=== PATIENT | male | born 1955 | race Caucasian/White ===

== ENCOUNTER → 2016-10-12 | Outpatient (CLI) | payer OTHER ==
[~2016-10-12] MED LIST: ALBUTEROL0.09 MG/A2 IH; ALBUTEROL0.09 MG/A2 INH; ALDACTONE25 M1 PO; AMOXICILLIN500 MG PO; ASPIRIN ADULT L81 M1 PO; CLARITIN-D 12 H1 TAB PO; COREG3.125 MG PO; DAYPRO600 M1 PO; DONNATAL1 TAB PO; DOXYCYCLINE MO100 MG PO; LEVAQUIN750 MG PO; LEVOFLOXACIN500 MG PO; LISINOPRIL2.5 MG PO; PREDNICOT10 MG PO; PREDNISONE20 MG PO; PROTONIX TR40 MG PO; ROBITUSSIN AC 110 ML PO; VICODIN 5/500 505 MG PO
== END | disposition home or self-care (01) ==
LOC: CARD 10:28
DX: I34.0 Nonrheumatic mitral (valve) insufficiency (principal); I42.9 Cardiomyopathy, unspecified

== ENCOUNTER → 2017-06-22 | Outpatient (CLI) | payer OTHER | END | disposition home or self-care (01) | LOC: RAD 13:12 | DX: M79.605 Pain in left leg (principal) ==

== ENCOUNTER 2017-07-20 12:10 | Inpatient (IN) | payer OTHER ==
[~2017-07-20] VITALS: Ht 175.2 cm; Wt 81.2 kg
--- NOTE | ~2017-07-20 | PR ---
[place], [place] PROGRESS NOTE NAME: [id number] UNIT #: [id number] ROOM: 505 DOCTOR: GALINA OLIVERA MD,DIEGO BIRTHDATE: [birth year] DOS: 07/24/2017 SUBJECTIVE: The patient reported partial reduction of the chest congestion and has expectorate sputum, which appeared to be quite purulent, at the bedside intermittently. The patient denies symptoms of chest pain or hemoptysis. Wheezing and shortness of breath was resolving. OBJECTIVE: VITAL SIGNS: Normal temperature, respiratory rate 16, heart rate 72, blood pressure 101/71. Pulse oxygen saturation on room air was 95% saturation. HEENT: Moderate obesity. NECK: Supple. CARDIOVASCULAR: S1, S2 audible. LUNGS: Moderate reduction in breath sounds, scattered wheezing of the lungs are noted today. ABDOMEN: Soft, nontender. EXTREMITIES: Chronic obesity. IMPRESSION: The patient has been currently noted with acute exacerbation of chronic obstructive pulmonary disease with acute bronchitis with bacterial infection, resolving with current medical management. PLAN OF MANAGEMENT: Reduce the Solu-Medrol to 40 mg b.i.d. dosing today. Sputum culture has been ordered, not done so far. Continuation of doxycycline as previously ordered. Possible discharge home tomorrow morning depends on further resolution of the acute symptoms will be considered. DIEGO MOJICA MD CM:PNTRANS [phone] DIEGO OLIVERA MD 07/25/17 0312 interface
--- NOTE | ~2017-07-20 | PR ---
[place], [place] PROGRESS NOTE NAME: [facility]PH [facility] [id number] UNIT #: [id number] ROOM: 505 DOCTOR: JHONNY LAUGHLIN MD BIRTHDATE: [birth year] DOS: SUBJECTIVE: The continues to complain of cough, states that he is unable to cough up any mucus. OBJECTIVE: GENERAL: He is no distress. No audible wheezing. VITAL SIGNS: Blood pressure is 95/68, pulse of 69, respirations 18, temperature 97.5. LUNGS: Diminished breath sounds. No wheezes heard this morning. HEART: Regular. ABDOMEN: Obese. EXTREMITIES: Without any edema. ASSESSMENT AND PLAN: 1. The patient with acute exacerbation of chronic obstructive pulmonary disease, on IV steroids. 2. Acute tracheobronchitis with a negative CT of the chest. For the patient's continued complaints I will ask Dr. Iraheta for an opinion. 3. Cardiomyopathy, ejection fraction 10%, status post stress test this morning. Dr. Nieves has not read the nuclear part of the chest yet. If that is negative, the patient should be able to go home. JHONNY LAUGHLIN MD CM:PNTRANS 7 [phone] JHONNY LAUGHLIN MD 07/23/17957 interface
--- NOTE | ~2017-07-20 | PR ---
[place], [place] PROGRESS NOTE [id number] UNIT #: [id number] ROOM: 505 DOCTOR: GALINA OLIVERA MD,DIEGO BIRTHDATE: [birth year] DOS: 07/25/2017 SUBJECTIVE: He has been showing progressive resolution and improvement of respiratory symptoms gradually. Denies symptoms of chest pain or hemoptysis. Denies symptoms of abdominal pain. Coughing frequency and intensity has improved significantly. Sputum expectoration noted minimal at the present time. OBJECTIVE: VITAL SIGNS: For the patient, which was recorded showed the temperature noted as normal. The respiratory rate of the patient recorded as 18, heart rate 85, blood pressure 113/65. The pulse oxygen saturation is recorded 96% saturation. HEENT: No acute change. NECK: Supple. CARDIOVASCULAR: S1, S2 audible. LUNGS: Without any wheezing or crackles at the present time. ABDOMEN: Soft. Moderate obesity, bowel sounds present. EXTREMITIES: Without any edema. IMPRESSION: Progressive resolution of the respiratory symptoms. The patient has been currently admitted with acute exacerbation of chronic obstructive pulmonary disease and acute bronchitis. PLAN OF TREATMENT: The patient may be considered for home discharge, on oral antibiotics and the tapering prednisone and short acting bronchodilators. DIEGO MOJICA MD CM:PNTRANS [phone] DIEGO OLIVERA MD 07/26/17 0143 interface
--- NOTE | ~2017-07-20 | ST ---
[place], [place] EXERCISE STRESS TEST REPORT NAME: [facility] [id number] UNIT #: [id number] ROOM: 505 DOCTOR: COREEN CASTRO MD BIRTHDATE: [birth year] DOS: 07/23/2017 Lexiscan portion of the Lexiscan Cardiolite Baseline cardiogram, sinus rhythm with left ventricular hypertrophy, with interventricular conduction delay, with a 0.4 mg Lexiscan duration of 10 seconds. With Lexiscan, the patient did have some isolated PVCs. Significant T-wave inversions are present in the inferior leads and also the lateral leads, which were there in the beginning, got a little bit more deep. No chest discomfort or complaints of dizziness. FINAL IMPRESSION: Indeterminate test secondary to the underlying EKG abnormalities. The patient did have significant dizziness. No chest discomfort. Blood pressure is normal. Nuclear images will be reported separately. COREEN CASTRO MD CM:STRESS:EXERCISE STRESS TEST REPORT [id number] COREEN CASTRO MD
--- NOTE | ~2017-07-20 | DS ---
[place], [place] DISCHARGE SUMMARY NAME: EDER JOSEPH UNIT #: [id number] ROOM: 505 DOCTOR: BEAU REIDBONI Lucero BIRTHDATE: [birth year] DOS: 07/25/2017 DISCHARGE DIAGNOSES: 1. Chest pains with negative cardiac stress test discussed with Dr. Martinez today. The nuclear scan read by Dr. Martinez according to him was negative. 2. Acute exacerbation of chronic obstructive pulmonary disease, improved with treatment. 3. Severe cardiomyopathy with 10% left ventricular ejection fraction, chronic systolic type congestive heart failure, compensated. 4. Coronary artery disease of the false pass vessels without chest pain. 5. Chronic obstructive pulmonary disease. 6. History of nicotine and alcohol dependence. HOSPITAL COURSE: The patient was admitted by Dr. Graham when he presented with chest pain, increasing shortness of breath and cough. The patient was taken for a cardiac stress test and Dr. Martinez says his nuclear scan was read as normal and he can be discharged to home today. Acute exacerbation of COPD, treated with antibiotics and corticosteroids. The patient has already been treated for 5 days with these medicines, his breathing has improved, so the treatment will be stopped and he is being discharged to home. Chronic systolic type congestive heart failure, compensated, 10% left ventricular ejection fraction. History of coronary artery disease of false pass vessels, rule out chest pains. History of nicotine and alcohol dependence. IMPRESSION: Cardiac stress test. Nuclear scans were negative according to Dr. Martinez when we called him today. LABORATORY DATA: Cardiac enzymes x 3, troponin I levels were negative. Echocardiogram with 10% left ventricular ejection fraction with dilated left ventricle. DISCHARGE MANAGEMENT: Colace 100 mg a day, potassium chloride 20 mEq daily, lisinopril 2.5 mg a day, folic acid 1 mg daily, Lipitor 20 mg a day, aspirin 81 mg a day, Protonix 20 mg a day, furosemide 40 mg b.i.d., Coreg 3.125 mg b.i.d., DuoNeb every 4 hours as needed for shortness of breath. Follow up with Dr. Graham on Wednesday. Vicodin p.r.n., temazepam p.r.n. [place], [place] DISCHARGE SUMMARY NAME: EDER JOSEPH UNIT #: [id number] ROOM: 505 DOCTOR: BONI YANEZ MD BIRTHDATE: [birth year] BONI YANEZ MD CM:CARLOS [phone] BONI YANEZ MD 07/25/17 215 interface
--- NOTE | ~2017-07-20 | CON ---
[place], [place] REPORT OF CONSULTATION NAME: EDER JOSEPH UNIT #: [id number] ROOM: 505 DOCTOR: ELENO LUU MD BIRTHDATE: [birth year] DOS: 07/22/2017 HISTORY OF PRESENT ILLNESS: This is a 62-year-old -[place] man with a history of coronary artery disease. He had coronary artery evaluated in 2013 in [place] and was found to have a cardiomyopathy. One year ago, he had 2-vessel CABG and aortic valve replacement in [facility] and Dr. Oliva performed the study. He had severely reduced LV systolic function and has chronic systolic heart failure. He also has COPD in the past, has had alcohol problem, but he no longer uses nicotine. He has never had a stroke, bleeding ulcers or kidney problems. He was admitted to the hospital because of cough of several years duration. His cough is quite intense and the chest hurts when he coughs. He has been coughing a very little sputum, no blood in it. Because of the cough, he is unable to catch his breath at times. No swelling of the lower extremities. He has not had any PND, orthopnea or any palpitations or loss of consciousness. HOME MEDICATIONS: Atorvastatin, aspirin, carvedilol, Colace, folic acid, Lasix, lisinopril in small doses, Protonix, potassium supplement and temazepam. PHYSICAL EXAMINATION: GENERAL: The patient is very pleasant, alert. He is not anemic. There is no jaundice. There is no finger clubbing or thyromegaly. VITAL SIGNS: Pulse is regular at 60 beats per minute, blood pressure 94/52. NECK: JVP is +6 cm with a positive AJR. No bruit in the neck. Parasternal heave is present. CARDIAC: Auscultation reveals no murmurs or rubs. He has S3. EXTREMITIES: There is no edema in the lower extremities and good pedal pulses. : Lungs are clear with mildly reduced breath sounds. LABORATORY DATA: Troponin I levels are less than 0.015. Hemoglobin 14.9 g/dL. BUN 16, creatinine 1.03 and potassium 3.3, sodium 133. IMPRESSION: 1. This patient has chest pain that is probably coming from the chest wall because of acute chest infection that has caused a lot of cough. 2. There is only mild evidence of cardiac decompensation, i.e., elevated jugular venous pressure. 3. Severe ischemic cardiomyopathy. 4. Mild hyponatremia and hypokalemia. I discussed this with Dr. Martinez and he wishes to perform a Lexiscan Cardiolite study on this patient tomorrow and will be scheduled. I thank you on behalf of Dr. Martinez for this consult. [place], [place] REPORT OF CONSULTATION NAME: JOSEPHEDER UNIT #: [id number] ROOM: [facility] DOCTOR: ELENO LUU MD BIRTHDATE: [birth year] ELENO LUU MD CM:CONSTR:REPORT OF CONSULTATION 58 07/23/17 0028 interface
--- NOTE | ~2017-07-20 | PR ---
[place], [place] PROGRESS NOTE [id number] UNIT #: [id number] ROOM: 505 DOCTOR: JHONNY LAUGHLIN MD BIRTHDATE: [birth year] DOS: SUBJECTIVE: The patient is doing fine without any complaints this morning. He still has that discomfort in the left axillary area. OBJECTIVE: VITAL SIGNS: Blood pressure is 102/57, pulse of 68, respirations 16, temperature 98.7. LUNGS: Clear. HEART: Regular. ABDOMEN: Soft. EXTREMITIES: Without any edema. LABORATORY DATA: Three sets of troponin were negative. ASSESSMENT AND PLAN: 1. Acute exacerbation of chronic obstructive pulmonary disease with acute respiratory distress, improving on the steroids and antibiotics. 2. Acute tracheobronchitis on antibiotics. CT did not show a pneumonia. 3. Left-sided chest pain appears to be musculoskeletal. The patient was ordered Toradol, which I will continue. 4. Hypokalemia. Supplementation was given, awaiting cardiology consultation this morning. JHONNY LAUGHLIN MD CM:PNTRANS [phone] JHONNY LAUGHLIN MD 07/22/171946 interface
--- NOTE | ~2017-07-20 | WRIGHTHP ---
[place], [place] PATIENT HISTORY AND PHYSICAL EXAM NAME: EDER JOSEPH [facility] #: [id number] UNIT #: [id number] ROOM: [facility] DOCTOR: JHONNY LAUGHLIN MD BIRTHDATE: [birth year] DOS: HISTORY OF PRESENT ILLNESS: The patient comes in with complaints of cough and shortness of breath for the last several days. Cough is productive of scant to minimal amount of sputum. The patient states that he is unable to catch his breath at times. His pain is in his left side of the chest without any radiation. Denies having any nausea or any emesis. ____ the pain, he points to his infra-axillary area on the left side. PAST MEDICAL HISTORY: Significant for; 1. Coronary artery disease and aortic valve stenosis, status post CABG and AVR about a year in July of 2016. 2. Cardiomyopathy. 3. Chronic obstructive pulmonary disease. 4. History of nicotine abuse. 5. History of alcohol abuse. MEDICATIONS: He is currently on are atorvastatin 20 daily, aspirin 81 daily, Coreg 3.125 twice a day, Colace 100 daily, folic acid 1 mg daily, Lasix 40 b.i.d., [place] 5 q.6 h. p.r.n., lisinopril 2.5 daily, Protonix 40 daily, potassium 20 daily and temazepam 30 at bedtime. SOCIAL HISTORY: History of heavy cigarette smoking, but has not smoked for about 5 years. PHYSICAL EXAMINATION: GENERAL: He is awake, alert and oriented. VITAL SIGNS: Blood pressure is 92/58, pulse of 60, respirations 18 and temperature 98.0. LUNGS: Clear. HEART: Regular. LUNGS: Diminished breath sounds, scattered wheezes. HEART: Regular. ABDOMEN: Obese, soft. Tenderness noticed in the left chest wall, infra-axillary area with rebound. EXTREMITIES: Without any edema. ASSESSMENT AND PLAN: 1. Acute exacerbation of chronic obstructive pulmonary disease with acute respiratory distress, on intravenous antibiotics and steroids. 2. Acute tracheobronchitis. Chest CT has been ordered. IV antibiotics have been ordered. 3. Left-sided chest pain, which appears to be atypical and musculoskeletal, but we will ask Dr. Martinez for an opinion. Local moist heat application and Toradol will be ordered. [place], [place] PATIENT HISTORY AND PHYSICAL EXAM NAME: EDER JOSEPH UNIT #: [id number] ROOM: [facility] DOCTOR: JHONNY LAUGHLIN MD BIRTHDATE: [birth year] JHONNY LAUGHLIN MD CM:HISPHYS:PATIENT HISTORY AND PHYSICAL EXAMINATION JHONNY LAUGHLIN MD 07/21/17 0949 interface
--- NOTE | ~2017-07-20 | CON ---
[place], [place] REPORT OF CONSULTATION [facility] [id number] UNIT #: [id number] ROOM: 505 DOCTOR: GALINA OLIVERA MD,DIEGO BIRTHDATE: [birth year] DOS: 07/23/2017 REASON FOR CONSULTATION: Persistent cough, chest congestion. The consultation request by Dr. Rhonda Graham. HISTORY OF PRESENT ILLNESS: This is a 62-year-old white male who was seen and examined on 07/23/2016, has been admitted to the hospital under care of Dr. Rhonda Graham on 07/21/2016. The patient reported having progressive symptoms of coughing, which has been present for past several days. He has been noted with scant amount of sputum with that. She stated the chest congestion remains as well as wheezing was also noted at this time with excessive cough. Shortness of breath occurs with exertion. Denies symptoms of chest pain or hemoptysis or edema, pain of the lower extremities. The pain has been noted previously on left side, which has been completely resolved. REVIEW OF SYSTEMS: CONSTITUTIONAL: Fatigue and tiredness noted. There were no symptoms of fever or chills. EYES: Denies any burning, redness, tenderness. EARS, NOSE AND THROAT: Denies sore throat, hoarseness, otalgia, postnasal drainage. CARDIOVASCULAR: Denies anginal pain, edema or pain of the lower extremities. GASTROINTESTINAL: Denies dysphagia, nausea, vomiting, diarrhea, abdominal pain, hematemesis, melena, or hematochezia. SKIN: Denies lesions or rashes. MUSCULOSKELETAL: No acute deformities. SKIN: No lesions or rashes. Remaining systems were reviewed, there were noted all negative. PAST MEDICAL HISTORY: Was reported with: 1. History of severe cardiomyopathy, left ventricular ejection fraction 10%. 2. Coronary artery disease with surgical intervention. 3. History of COPD. 4. History of nicotine abuse. 5. History of alcohol dependence. SOCIAL HISTORY: The patient is , has 2 children. He has worked in the [employer] for 38 years. Smoking was noted as a teenager, pack of cigarettes per day until 2012. The patient has been noted with history of use of alcohol previously as well. PAST SURGICAL HISTORY: Noted with aortic valve replacement for the patient as well as coronary artery bypass grafting was done in [facility] in 2017. FAMILY HISTORY: The patient noted and noncontributory. HOME MEDICATIONS: Noted use of Lipitor, aspirin, Coreg, Colace, folic acid, [place], [place] REPORT OF CONSULTATION NAME: EDER JOSEPH UNIT #: [id number] ROOM: [facility] DOCTOR: GALINA OLIVERA MD,DIEGO BIRTHDATE: [birth year] Lasix, lisinopril, Protonix, potassium, and Restoril. DRUG ALLERGIES: No known drug allergies. PHYSICAL EXAMINATION: GENERAL: This is a 62-year-old male with the current noted sitting on side of bed without distress noted with a nonproductive cough. The patient intermittently during the assessment with some audible wheeze. The patient noted 5 feet 9 inches, weight of 78 kg, BMI 25.5. VITAL SIGNS: The patient shows a normal temperature, respiratory rate 18-20, heart rate of 81-77, blood pressure 124/40 to 112/61. Pulse oxygen saturation on room air was 98% saturation. HEENT: Moderate obesity. Head was atraumatic. Eyes nonicterus. NECK: Supple. CARDIOVASCULAR: S1, S2 audible. LUNGS: Noted with decreased breath sounds, scattered expiratory wheezing. There were no crackles. ABDOMEN: Soft. Moderate obesity. Bowel sounds present. EXTREMITIES: No edema, clubbing, cyanosis. MUSCULOSKELETAL SYMPTOMS: Without any acute deformities. SKIN: No visible lesions. CENTRAL NERVOUS SYSTEM: Cranial nerves are intact. No focal deficit. LABORATORY DATA: CBC of 07/20/2017 were noted essentially as normal. CBC except the differential is 44, reported a 4% atypical lymphocytes. The BMP on admission, glucose 174, BUN and creatinine normal, sodium 133, potassium 3.3, CO2 34. Troponin, which were done on the and 3rd were all noted normal. The echocardiogram that was completed on 07/21/[address] Martinez described as findings of only 10% left ventricular ejection fraction. The right ventricle was noted mildly dilated as well. The CT scan of the chest on 07/20/2017 was reviewed, does not show any acute pulmonary nodule interstitial infiltration. The mediastinal structure could not be assessed appropriately because of lack of the IV contrast use. IMPRESSION: The patient will be currently admitted to the hospital noted with acute exacerbation of chronic obstructive pulmonary disease with acute bronchitis ____ area to be considered because of ongoing symptom for the past several weeks. The patient has not been taking any medications for that at the present time. PLAN OF TREATMENT: DuoNeb will be given every 4 hours. The patient will be started on IV Solu-Medrol as well. Antibiotic will be given as well. Sputum for Gram stain and culture. Mucinex was ordered high dose. ____ rather for further assessment. [place], [place] REPORT OF CONSULTATION NAME: EDER JOSEPH UNIT #: [id number] ROOM: [facility] DOCTOR: DIEGO LYNN MD BIRTHDATE: [birth year] DIEGO MOJICA MD CM:CONSTR:REPORT OF CONSULTATION 1653 07/24/17 0418 interface
--- NOTE | ~2017-07-20 | PR ---
[place], [place] PROGRESS NOTE [facility]: [id number] UNIT #: [id number] ROOM: 505 DOCTOR: BONI YANEZ MD BIRTHDATE: [birth year] DOS: 07/24/2017 SUBJECTIVE: The patient says he is still congested in his chest, but his breathing continues to improve and that he has been seen by Dr. Iraheta who is planning to clear him for discharge tomorrow. OBJECTIVE: GENERAL APPEARANCE: The patient is alert and oriented x 3, in no visible distress. VITAL SIGNS: Blood pressure 117/60, heart rate 102 beats per minute, breathing 20 times a minute, temperature 98 degrees Fahrenheit. HEENT AND NECK: Exam within normal limits. CARDIOVASCULAR SYSTEM: Heart rate is regular in rate and rhythm. S1 and S2 normally audible. LUNGS: Clear to auscultation. ABDOMEN: Soft, nontender. No obvious organomegaly. Bowel sounds are present. EXTREMITIES: Without significant cyanosis or edema. IMPRESSION: 1. The patient with acute exacerbation of chronic obstructive pulmonary disease, continues to improve with treatment with corticosteroids, ceftriaxone and bronchodilators. 2. Chest pains. The patient ruled out for myocardial infarction with serial cardiac enzymes and the cardiac stress test was performed, which has not been fully reported. 3. Severe cardiomyopathy with 10% left ventricular ejection fraction, chronic systolic type congestive heart failure, compensated. BONI YANEZ MD CM:PNTRANS [id number] BONI YANEZ MD 07/25/17 0409 interface
[2017-07-20 12:30] VITALS: BP 109/65
[2017-07-20 12:45] VITALS: BP 109/65
[2017-07-20] MEDS ORDERED: NATURE'S BLEND F1 MG PO (14:54)
[2017-07-20] MEDS ORDERED: POTASSIUM CHLO10 ME4 PO (14:54)
[2017-07-20] MEDS ORDERED: LIPITOR20 MG PO (14:54)
[2017-07-20] MEDS ORDERED: RESTORIL30 M1 PO (14:55)
[2017-07-20] MEDS ORDERED: TAMIFLU 75MG CA75 MG PO (14:55)
[2017-07-20 16:00] VITALS: BP 108/51
[2017-07-20] MEDS ORDERED: NORCO 5-325 TA1 EACH PO (16:02)
[2017-07-20] MEDS ORDERED: FUROSEMIDE40 MG PO (16:02)
[2017-07-20] MEDS ORDERED: DOC-Q-LACE100 MG PO (16:03)
[2017-07-20 16:18] LABS: HEMATOCRIT 43.8 % (42.0-52.0); HEMOGLOBIN 14.9 g/dl (14.0-18.0); MEAN CELL VOLUME 86.4 fl (80.0-94.0); MEAN CORPUSCULAR HGB 29.4 pg (27.0-31.0); MEAN PLATELET VOLUME 9.3 fl (9.6-12.3); PLATELET COUNT AUTOMATED 206 10*3/uL (130-400); RED BLOOD COUNT 5.07 10*6/uL (4.50-5.90); RED CELL DISTRI WIDTH 13.1 % (0-14.5); WHITE BLOOD COUNT 5.7 10*3/uL (4.8-10.8)
[2017-07-20 16:55] LABS: ATYPICAL LYMPHS 4 % (0-0); TOTAL CELLS COUNTED 100 #CELLS
[2017-07-20 16:56] LABS: PLATELET SUFFICIENCY NORMAL (NORMAL)
[2017-07-20 20:00] VITALS: BP 119/68
[2017-07-21] VITALS: BP 101/66
[2017-07-21 04:00] VITALS: BP 92/58
[2017-07-21 08:00] VITALS: BP 116/56
[2017-07-21 09:53] LABS: BUN 16 mg/dl (7-24); CHLORIDE 92 mmol/L (98-107); CREATININE 1.03 mg/dL (0.70-1.30); POTASSIUM 3.3 mmol/L (3.5-5.1); SODIUM 133 mmol/L (136-145)
[2017-07-21 12:00] VITALS: BP 97/55
[2017-07-21 16:00] VITALS: BP 103/59
[2017-07-21 20:00] VITALS: BP 90/50
[2017-07-22] VITALS (7 sets, daily range): BP systolic 82–130; BP diastolic 50–80
[2017-07-23] VITALS: BP 95/68
[2017-07-23 08:00] VITALS: BP 124/40
[2017-07-23 12:00] VITALS: BP 112/61
[2017-07-23 16:00] VITALS: BP 119/70
[2017-07-23 20:00] VITALS: BP 111/62
[2017-07-24] VITALS: BP 101/71
[2017-07-24 08:00] VITALS: BP 114/48
[2017-07-24 12:00] VITALS: BP 112/54
[2017-07-24 16:00] VITALS: BP 117/59
[2017-07-24 20:00] VITALS: BP 139/85
[2017-07-25] VITALS: BP 103/55
[2017-07-25 08:00] VITALS: BP 109/53
[2017-07-25 12:00] VITALS: BP 99/51
[2017-07-25 16:00] VITALS: BP 113/65
== END 2017-07-25 16:44 | disposition home or self-care (01) | DRG 191 ==
LOC: 5E 12:10
PROVIDERS: Internal Medicine
DX: J44.0 Chronic obstructive pulmonary disease with (acute) lower respiratory infection (principal); E87.1 Hypo-osmolality and hyponatremia; I42.9 Cardiomyopathy, unspecified; I50.22 Chronic systolic (congestive) heart failure; I25.5 Ischemic cardiomyopathy; J20.9 Acute bronchitis, unspecified; R06.03 Acute respiratory distress; E87.6 Hypokalemia; R07.89 Other chest pain; J44.1 Chronic obstructive pulmonary disease with (acute) exacerbation; I25.10 Atherosclerotic heart disease of native coronary artery without angina pectoris; E66.9 Obesity, unspecified; I35.0 Nonrheumatic aortic (valve) stenosis; Z87.891 Personal history of nicotine dependence; Z95.1 Presence of aortocoronary bypass graft; Z79.82 Long term (current) use of aspirin; Z79.899 Other long term (current) drug therapy; Z68.25 Body mass index [BMI] 25.0-25.9, adult

== ENCOUNTER → 2019-04-27 | Outpatient (CLI) | payer OTHER ==
[~2019-04-27] MED LIST changes: +DOC-Q-LACE100 MG PO; +FUROSEMIDE40 MG PO; +LIPITOR20 MG PO; +NATURE'S BLEND F1 MG PO; +NORCO 5-325 TA1 EACH PO; +POTASSIUM CHLO10 ME4 PO; +RESTORIL30 M1 PO; +TAMIFLU 75MG CA75 MG PO
== END | disposition home or self-care (01) ==
LOC: CARD 13:48
DX: I25.10 Atherosclerotic heart disease of native coronary artery without angina pectoris (principal); R06.02 Shortness of breath

== ENCOUNTER → 2019-07-03 | Outpatient (CLI) | payer OTHER | END | disposition home or self-care (01) | LOC: RAD 13:29 | DX: J98.4 Other disorders of lung (principal); I51.7 Cardiomegaly ==

== ENCOUNTER → 2019-07-17 | Outpatient (CLI) | payer OTHER | END | disposition home or self-care (01) | LOC: MRI 08:55 | DX: M47.812 Spondylosis without myelopathy or radiculopathy, cervical region (principal); M47.814 Spondylosis without myelopathy or radiculopathy, thoracic region; M47.816 Spondylosis without myelopathy or radiculopathy, lumbar region ==

== ENCOUNTER → 2019-08-23 | Outpatient (CLI) | payer OTHER ==
[~2019-08-23] MED LIST changes: +CEFAZOLIN1 G1 IV; +CLONAZEPAM0.5 M2 PO; +LOPRESSOR25 MG PO; +METOPROLOL SUCC25 M2 PO; +MIRTAZAPINE15 M2 PO
== END | disposition home or self-care (01) ==
LOC: RAD 13:25
DX: I51.7 Cardiomegaly (principal)

== ENCOUNTER 2019-08-25 22:38 | Inpatient (IN) | payer OTHER ==
[~2019-08-25] VITALS: Ht 172.7 cm; Wt 74.0 kg
[~2019-08-25 22:38] MED LIST changes: -CEFAZOLIN1 G1 IV; -CLONAZEPAM0.5 M2 PO; -LOPRESSOR25 MG PO; -METOPROLOL SUCC25 M2 PO; -MIRTAZAPINE15 M2 PO
[2019-08-25 22:41] VITALS: BP 123/71
[2019-08-25 23:45] LABS: BASO # 0.1 10*3/uL (0.0-0.1); BASO % 0.4 % (0.0-1.0); EOS # 0.2 10*3/uL (0.0-0.4); EOS % 1.6 % (1.0-4.0); HEMOGLOBIN 13.2 g/dl (14.0-18.0); LYMPH # 1.5 10*3/uL (1.3-4.4); LYMPH % 13.1 % (27.0-41.0); MEAN CELL VOLUME 90.9 fl (80.0-94.0); MEAN PLATELET VOLUME 9.4 fl (9.6-12.3); MONO % 9.1 % (3.0-9.0); NEUT # 8.6 10*3/uL (2.3-7.9); NEUT % 75.1 % (47.0-73.0); PLATELET COUNT AUTOMATED 463 10*3/uL (130-400); RED CELL DISTRI WIDTH 14.5 % (0-14.5); WHITE BLOOD COUNT 11.4 10*3/uL (4.8-10.8)
[2019-08-25 23:55] LABS: ACT PARTIAL THROMBO TIME 35.1 SECONDS (20.0-32.1); INTERNATIONAL NORM RATIO 1.4 (2.0-3.5)
[2019-08-26] VITALS (13 sets, daily range): BP systolic 81–116; BP diastolic 50–80
[2019-08-26 00:03] LABS: ALBUMIN 2.4 gm/dl (3.1-4.5); ALKALINE PHOSPHATASE 210 U/L (45-117); BUN 18 mg/dl (7-24); CHLORIDE 101 mmol/L (98-107); CREATININE 0.89 mg/dL (0.70-1.30); POTASSIUM 4.5 mmol/L (3.5-5.1); SGOT/AST 112 IU/L (3-35); SGPT/ALT 114 U/L (12-78); SODIUM 134 mmol/L (136-145); TOTAL PROTEIN 6.5 gm/dL (6.4-8.2)
[2019-08-26 00:05] LABS: TROPONIN I < 0.015 ng/ml (<0.045)
--- NOTE | 2019-08-26 01:14 | NUR ---
NO C/O AT THIS TIME.--MIGUEL ANGEL PATEL RN
--- NOTE | 2019-08-26 01:51 | NUR ---
PT RETURNING FROM CT AT THIS TIME.---MIGUEL ANGEL PATEL RN
--- NOTE | 2019-08-26 05:40 | NUR ---
SLIGHT DELAY IN GETTING PT UPSTAIRS DUE TO HIS REQUEST FOR BSC FOR DIARRHEA.--MIGUEL ANGEL PATEL RN
--- NOTE | 2019-08-26 05:40 | NUR ---
WHEN PT GOT UP FOR DIARRHEA,HE BECAME SWEATY AND FELT NAUSEATED.THEN S/S WENT AWAY AFTER HE MOVED HIS BOWELS.---MIGUEL ANGEL PATEL RN
--- NOTE | 2019-08-26 06:15 | NUR ---
A 64, admitted to , under the services of Dr. BEAU REID,BONI Lucero with a diagnosis of PNEUMONIA. Chief complaint is FEVER. Patient arrived via stretcher from ER. Monitor applied. Initial assessment completed. Vital signs taken and recorded. DR. BEAU REID,BONI Lucero notified of admission to the unit. Orders received. See assessment for past medical history, medications and allergies. Patient and/or family oriented to unit. [facility] FLO[facility] visitation policy reviewed. Clothing/patient valuable form completed. ABDIRASHID DIAS
--- NOTE | 2019-08-26 06:30 | NUR ---
PATIENT RECTAL TEMP 96.8. PLACED ON HEATING BLANKET. NOTIFIED DR. YANEZ PATIENT ON FLOOR. SEE NEW ORDERS.
--- NOTE | 2019-08-26 07:39 | NUR ---
CONSULT CALLED TO . AWAITING CALL BACK.
--- NOTE | 2019-08-26 07:46 | NUR ---
CALLED CONSULT TO . LEFT MESSAGE. AWAITING CALL BACK.
--- NOTE | 2019-08-26 07:48 | NUR ---
CALLED JANIA. ORDERS FOR ROCEPHIN AND ZITHROMAX REC'D. SAID SHE WOULD BE IN TO SEE PT LATER TODAY.
--- NOTE | 2019-08-26 08:04 | NUR ---
CALLED BACK. CONTINUE CURRENT ORDERS. WILL BE IN TO SEE PT TODAY.
[2019-08-26 11:21] LABS: BILIRUBIN NEGATIVE (NEGATIVE); BLOOD NEGATIVE (NEGATIVE); CLARITY SL CLOUDY (CLEAR); COLOR YELLOW (YELLOW); GLUCOSE NEGATIVE (NEGATIVE); KETONE NEGATIVE (NEGATIVE); LEUKO ESTERASE NEGATIVE (NEGATIVE); NITRITE NEGATIVE (NEGATIVE); SPECIFIC GRAVITY 1.015 (1.005-1.030); UROBILINOGEN 0.2 E.U./dl (0.2-1.0)
[2019-08-26 11:27] LABS: BACTERIA 1+; MUCOUS 1+; RBC 0-2 rbc/hpf (0-2)
--- NOTE | 2019-08-26 12:36 | NUR ---
AWARE OF LOW BP. SAID TO CONTINUE CURRENT ORDERS AND WILL BE IN TO SEE PT SHORTLY.
--- NOTE | 2019-08-26 14:22 | NUR ---
SLEEPING, NO SXS OF DISTRESS NOTED. RESPERS EASY, REGULAR. CALL LIGHT IN REACH. TEMP 98.4 ON HYPOTHERMIA BLANKET WITH PROBE IN PLACE. WILL CONTINUE TO MONITOR.
--- NOTE | 2019-08-26 15:16 | NUR ---
8BEAT RUN OF V-TACH NOTED. PT ASYMPTOMATIC SITTING IN BED. VSS. NOTIFIED. NEW ORDER FOR LABS REC'D. ORDERED TO CALL WITH ABNORMAL RESULTS.
[2019-08-26 15:51] LABS: BASO % 0.3 % (0.0-1.0); EOS # 0.2 10*3/uL (0.0-0.4); EOS % 2.3 % (1.0-4.0); HEMATOCRIT 37.2 % (42.0-52.0); HEMOGLOBIN 12.2 g/dl (14.0-18.0); LYMPH # 1.8 10*3/uL (1.3-4.4); LYMPH % 20.2 % (27.0-41.0); MEAN CORPUSCULAR HGB 29.8 pg (27.0-31.0); MEAN CORPUSCULAR HGB CONC 32.8 g/dl (33.0-37.0); MEAN PLATELET VOLUME 9.3 fl (9.6-12.3); MONO # 0.7 10*3/uL (0.1-1.0); MONO % 8.1 % (3.0-9.0); NEUT # 6.2 10*3/uL (2.3-7.9); NEUT % 68.7 % (47.0-73.0); PLATELET COUNT AUTOMATED 402 10*3/uL (130-400); RED BLOOD COUNT 4.09 10*6/uL (4.50-5.90); RED CELL DISTRI WIDTH 14.4 % (0-14.5)
[2019-08-26 16:04] LABS: BUN 14 mg/dl (7-24); CHLORIDE 105 mmol/L (98-107); CREATININE 0.75 mg/dL (0.70-1.30); POTASSIUM 3.7 mmol/L (3.5-5.1); SODIUM 135 mmol/L (136-145)
--- NOTE | 2019-08-26 16:38 | NUR ---
AWARE OF BP 82/64. PT ASYMPTOMATIC, IN TO SEE PT AT THIS TIME. NO NEW ORDERS REC'D.
--- NOTE | 2019-08-26 17:12 | NUR ---
NOTIFIED HOME MED REC WAS COMPLETED.
--- NOTE | 2019-08-26 17:47 | NUR ---
MAINTAINING TEMP AT 98.9 WITHOUT HYPOTHERMIA BLANKET VIA CONTINUOUS RECTAL PROBE. AWARE. OK TO REMOVE PROBE. WILL MONITOR.
--- NOTE | 2019-08-26 19:30 | NUR ---
TOOK OVER CARE OF PT. PT SITTING UP IN CHAIR BESIDE BED. AT BEDSIDE. PT ALERT ORIENTED AND PLEASANT MOOD. VITALS OBTAINED AND WNL. TEMPERATURE 97.2. RESPIRATIONS EASY AND UNLABORED ON ROOM AIR. WILL CONTINUE TO MONITOR. CALL LIGHT IN REACH.
--- NOTE | 2019-08-26 19:57 | NUR ---
DR YANEZ NOTIFIED THAT PT IS REQUESTING TYLENOL AND "SOMETHING TO HELP HIM SLEEP". NEW ORDERS RECEIVED FOR AMBIEN 10 MG PO QHS AND TYLNEOL 1000 MG Q8H NEEDED. WILL ADD APPROPRIATE ORDERS AND NOTIFY PATIENT. CALL LIGHT IN REACH.
--- NOTE | 2019-08-26 21:00 | NUR ---
Hep Lock discontinued, RAN. Site symptomatic. Pressure applied. Sterile dressing applied. LIU RIVERA
--- NOTE | 2019-08-26 21:00 | NUR ---
IV started right arm with #20 protective cath after 0 attempts. Site prepped with Chloroprep. Sterile dressing applied. Patient tolerated procedure well. LIU RIVERA
--- NOTE | 2019-08-26 23:25 | NUR ---
BONE CHAR PULLER TECH NOTIFIES THIS NURSE THAT PT HAS 11 BEAT RUN V TACH. TELEMETRY STRIP OBTAINED. WHEN CHECKING ON PATIENT, PT IS FOUND TO BE RESTING IN BED. EASILY AROUSED, RESPIRATIONS EASY AND UNLABORED ON ROOM AIR. VITALS WNL. STAT EKG ORDERED AT THIS TIME. WILL NOTIFY PHYSICIAN.
--- NOTE | 2019-08-26 23:35 | NUR ---
STAT EKG ORDERED FOR 10 BEAT RUN OF V-TACH PER CARDAC MONITOR. RT MADE AWARE.
--- NOTE | 2019-08-26 23:45 | NUR ---
DR YANEZ NOTIFIED OF 11 BEAT RUN OF V TACH AND FINDINGS ON STAT EKG. NEW ORDERS OBTAINED TO CONSULT THE [facility] CARDIOLOGY.
--- NOTE | 2019-08-26 23:56 | NUR ---
DR GOODMAN NOTIFIED OF CONSULT. PHYSICIAN STATES THAT HE WILL SEE PATIENT IN THE MORNING.
[2019-08-27] VITALS: BP 95/51
--- NOTE | 2019-08-27 03:30 | NUR ---
PT RESTING IN BED. NO S/S OF DISTRESS. RESPIRATIONS EASY AND UNLABORED ON ROOM AIR. ALL SAFETY MEASURES ARE IN PLACE. CALL LIGHT IN REACH.
--- NOTE | 2019-08-27 04:43 | NUR ---
Shift chart check completed.
--- NOTE | 2019-08-27 06:49 | NUR ---
DR YANEZ NOTIFIED REGARDING POSITIVE ANAEROIBIC BLOOD CULTURES. PHYSICIAN STATES TO CALL DR SUTTON AND ASK IF SHE WOULD LIKE TO GIVE ANY NEW ORDERS. CALL PLACED TO ANSWERING SERVICE AT THIS TIME. AWAITING CALL BACK.
[2019-08-27 08:00] VITALS: BP 112/76
--- NOTE | 2019-08-27 08:00 | NUR ---
CALLED BACK. NEW ORDERS FOR REPEAT BLOOD CULTURES REC'D.
--- NOTE | 2019-08-27 10:44 | NUR ---
IN TO SEE PT. WANTS TO SCHEDULE SHANICE FOR WEDNESDAY. WILL NOTIFY CARDIO WHEN THEY ROUND.
[2019-08-27 12:00] VITALS: BP 105/69
--- NOTE | 2019-08-27 12:06 | NUR ---
CXR CANCELLED IN AM PER DUE TO ORDERING CHEST CT FOR SAME DAY/TIME.
--- NOTE | 2019-08-27 12:57 | NUR ---
CALLED SERVICE FOR 8 BEAT RUN OF V-TACH. LEFT MESSAGE WITH ANSWERING SERVICE.
[2019-08-27 16:00] VITALS: BP 102/68
--- NOTE | 2019-08-27 16:27 | NUR ---
AWARE OF SHANICE SCHEDULED TOMORROW MORNING.
--- NOTE | 2019-08-27 19:30 | NUR ---
PT RESTING IN BED. VOICES NO CONCERNS AT THIS TIME. RESPS EASY AND NON LABORED. NO S/S OF DISTRESS NOTED. VSS. WHITE BOARD UPDATED. CALL LIGHT WITHIN REACH.
[2019-08-27 20:00] VITALS: BP 105/87
--- NOTE | 2019-08-27 21:06 | NUR ---
pt c/o 10/26 aching right shoulder pain and is requesting his ambien. medicated per order will monitor for relief. voices no other concerns at this time. resting in bed. call light within reach.
--- NOTE | 2019-08-27 22:00 | NUR ---
MEDICATION EFFECTIVE. PT SLEEPING. RESPS EASY AND NON LABORED. CALL LIGHT WITHIN REACH
--- NOTE | 2019-08-27 22:16 | NUR ---
Shift chart check completed.
[2019-08-28] VITALS: BP 95/61
--- NOTE | 2019-08-28 03:30 | NUR ---
PT SLEEPING. NO S/S OF DISTRESS NOTED. RESPS EASY AND NON LABORED. VSS. CALL LIGHT WITHIN REACH.
[2019-08-28 07:46] VITALS: BP 118/64
--- NOTE | 2019-08-28 07:46 | NUR ---
ASSESSMENT DOCUMENTED AND COMPLETED. PT PLEASANT AND COOPERATIVE, A&OX3, HEART SOUNDS REGULAR, FAINT CRACKLES IN POSTERIOR BASES OF LUNGS. ACTIVE BSX4, CAP REFILL <3 NO EDEMA. NO C/O PAIN. PT TOLERATED WELL. CHUCK MATHISCC
--- NOTE | 2019-08-28 08:07 | NUR ---
Nursing screen received and chart reviewed. Patient admitted for increased SOB and pneumonia. If patient has a decline in ADLs, transfers, or functional mobility, please send OT orders. Thank you. Lelo Arredondo, OTR/L
--- NOTE | 2019-08-28 08:21 | NUR ---
PHYSICAL THERAPY Screen received pt admitted with pneumonia please consult PT if pt has decline in functional status from baseline, thank you. Latia Merrill PT
--- NOTE | 2019-08-28 10:00 | NUR ---
PT VISITING WITH NO COMPLAINTS AT THIS TIME. CHUCK BLANK SPCC
[2019-08-28 11:39] VITALS: BP 98/70
--- NOTE | 2019-08-28 11:39 | NUR ---
ASSESSMENT AND DOCUMENTATION COMPLETED. PT RESTING IN BED NO C/O PAIN AT THIS TIME. CHUCK BLANK SPNRCC
--- NOTE | 2019-08-28 11:45 | NUR ---
PT TRANSPORTED OFF FLOOR VIA BED BY OR STAFF FOR SHANICE. PT STABLE, IV SITE INTACT. CHUCK BLANK [facility]
--- NOTE | 2019-08-28 12:00 | NUR ---
Operations Analyst in to talk to patient. Patient states lives at home alone with his family checking in on him. There are 0 steps in the home. Physician: Dr. Rhonda Graham [facility]: [facility] Home health services: none Patient's level of ADLs: INDEPENDENT Patient has working utilities: yes DME: nebulizer Follow-up physician's appointment after d/c: he prefers to make his own follow up appt after discharge Does patient want to access PORTAL?: no Discharge plan discussed with patient. He lives at home alone with his family checking in on him. He is independent in his ADLs and ambulation. Discussed home health care services and he denies any home needs at this time. When medically stable he will be discharged to home. He states his family will provide transportation on discharge. He request no further questions as he doesn't feel well. TOYA FUENTES
--- NOTE | 2019-08-28 12:45 | NUR ---
12:40 CALLED TO PT'S ROOM STAT. UPON ARRIVAL, PT SOB, ANXIOUS. O2 INCREASED TO 6 L NC. ESTABLISHED SPO2 TO BE 97-100% PT CALMED DOWN FEELING LESS SOB.
--- NOTE | 2019-08-28 12:48 | NUR ---
CALLED TO PTs ROOM FOR ANXIETY AND TROUBLE BREATHING. WHILE SURGERY WAS IN TO GET PT FOR SCHEDULED SHANICE. 78% ON 2L NC, TACHYPNIC AND STATES HE IS NAUSEATED. EKG AND RESPIRATORY CALLED. RESPIRATORY AT BEDSIDE. INCREASED TO 4L NC 95% BUT STILL LABORED. EKG NORMAL. CALLED FOR CARDIOLOGY TO ASSESS PT. NOTIFIED OF SITUATION. NEW ORDER FOR ATIVAN REC'D. CLEARED PT FOR SHANICE TODAY. ANESTHESIA IN TO SEE PT AT THIS TIME AND RECOMMENDING PT FOR SHANICE TOMORROW INSTEAD. NEW ORDER FOR SHANICE PLACED. AWARE. PT RESTING IN BED. BREATHING LESS LABORED AFTER ATIVAN. ZOFRAN GIVEN FOR NAUSEA. WILL MONITOR. AT BEDSIDE. CALL LIGHT IN REACH.
--- NOTE | 2019-08-28 13:36 | NUR ---
RESTING COMFORTABLY. STILL C/O NAUSEA BUT STATES ANXIETY IS MUCH BETTER. CALL LIGHT IN REACH. AT BEDSIDE.
[2019-08-28 16:00] VITALS: BP 94/65
[2019-08-28 20:00] VITALS: BP 93/54
[2019-08-29] VITALS (8 sets, daily range): BP systolic 82–120; BP diastolic 53–69
[2019-08-29 08:25] LABS: BUN 24 mg/dl (7-24); CREATININE 1.32 mg/dL (0.70-1.30)
--- NOTE | 2019-08-29 09:19 | NUR ---
OFF FLOOR FOR SHANICE.
--- NOTE | 2019-08-29 10:18 | NUR ---
VERSED ORDER GIVEN BY BESS ALEXANDER CRNA.
--- NOTE | 2019-08-29 11:38 | NUR ---
Nutritional Support Services Note: Pt noted to complain of nausea. On regular diet w/ 100% intakes. Currently NPO for testing. Will follow. CHUCKIE Mistry architect internship
--- NOTE | 2019-08-29 15:00 | NUR ---
Late entry. Academy Director in to see patient. Friend at bedside. Discussed short term SNF and he refuses. Discussed home IV antibiotics and he is agreeable. He is willing to learn how to administer them. Explained the need for a home health service and he verbalized an understanding. When provided with a list of agencies he chose [facility]. When medically stable he will be discharged to home with [facility] services.
[2019-08-29] MEDS ORDERED: CEFAZOLIN1 G1 IV (19:02)
[2019-08-30] VITALS: BP 87/61
[2019-08-30 04:00] VITALS: BP 115/98
--- NOTE | 2019-08-30 04:05 | NUR ---
CALLED INTO PATIENT ROOM BY PATIENT ATTENDENT. UPON ARRIVAL PATIENT ON FLOOR ATTEMPTING TO GET UP. PATIENT ASSISTED BACK TO BED. VITAL SIGNS OBTAINED AND STABLE. PATIENT DENIES HITTING HEAD WITH FALL. 3 SKIN TEARS NOTED TO LEFT ARM. SHIFT DIRECTOR AWARE, DR. LAUGHLIN AWARE AND WOUND CARE ORDERS OBTAINED. BED IS LOW, LOCKED, ALARMED, AND CALL LIGHT IS WIHTIN REACH. WILL CONTINUE TO MONITOR.
--- NOTE | 2019-08-30 05:21 | NUR ---
EDER JOSEPH [id number] Please refer to the physician's history and physical for past medical history, comorbid conditions, and allergies. Diagnosis: PNEUMONIA Fernando Score: 21,LOW OR NO RISK WOUND DESCRIPTIONS: Wound Number: 1 Location of the wound: Right forearm proximal Type of wound: skin tear Thickness: Partial Size: 11.5cm x 0.3cm x 0.1cm Tunneling: none Undermining: none Sinus Tract: none Presence of Exudate: Seroussanguineous Amount: Light Color: Red Odor: None Periwound Skin Appearance: Normal Wound edges: approximated Pain (associated with wound): none at time of assessment How does patient state this happened? pt stated this happened when he fell Wound Number: 2 Location of the wound: right forearm distal Type of wound: skin tear Thickness: Partial Size: 3.5cm x 0.2cm x 0.1cm Tunneling: none Undermining: none Sinus Tract: none Presence of Exudate: Seroussanguineous Amount: Light Color: Red Odor: None Periwound Skin Appearance: Normal Wound edges: approximated Pain (associated with wound): none at time of assessment How does patient state this happened? pt stated this happened when he fell Wound Number: 3 Location of the wound: right wrist Type of wound: abrasion Thickness: Partial Size: 2.0cm x 0.9cm x <0.1cm Tunneling: none Undermining: none Sinus Tract: none Presence of Exudate: none Amount: none Color: Red Odor: None Periwound Skin Appearance: Normal Wound edges: approximated Pain (associated with wound): none at time of assessment How does patient state this happened? pt stated this happened when he fell Surface the patient is resting on: Isoflex SKIN PREVENTION RECOMMENDATION: 1. Pressure redistribution support surface as appropriate 2. Elevate heels 3. Remove boots/TEDS every shift and reapply 4. Head of bed 30 degrees as tolerated 5. Assess nutrition and hydration 6. Manage moisture 7. Avoid the use of containment devices while in bed 8. Use absorptive products on surfaces limit layers of linens on bed 9. Turn and reposition every 1-2 hours in bed and every 1 hour in chair as tolerated 10. Weight shifts every 15 minutes while up in chair 11. Offloading with pillows or device to keep heels elevated off bed 12. Monitor skin at least every shift 13. Inspect under medical devices twice a day WOUND TREATMENT RECOMMENDATIONS: Skin tear guidelines: Cleanse right forearm distal and right forearm proximal with nss and apply sureprep around the wound bed apply hydrogel to wound bed and cover with rolled gauze every 2 days and prn for soiling.
--- NOTE | 2019-08-30 07:48 | NUR ---
PHYSICAL THERAPY Screen received pt is from home admitted with COPD and bactremia. Please consult PT if pt has a declinein functional status from baseline, thank you Latia Merrill PT
[2019-08-30 08:00] VITALS: BP 108/68
--- NOTE | 2019-08-30 08:10 | NUR ---
Nursing screen received and chart reviewed. Patient admitted from home for shortness of breath and bactremia. If patient has a decline in ADLs, transfers, or mobility, please send OT orders. Lelo Arredondo, OTR/l
--- NOTE | 2019-08-30 08:18 | NUR ---
Patient to get Cefazolin 2 gm IV Q8H at home. Faxed to [facility] to check cost. Awaiting PICC line and prescription. No prescription in chart at this time.
--- NOTE | 2019-08-30 08:26 | NUR ---
Faxed new [facility] order to [facility]
--- NOTE | 2019-08-30 09:00 | NUR ---
Mold Maker Plaster in to see patient. Discussed short term SNF and he refuses. Discussed home IV antibiotics and he remains agreeable. He is willing to learn how to administer them. When medically stable he will be discharged to home with [facility] services.
[2019-08-30 12:00] VITALS: BP 110/76
--- NOTE | 2019-08-30 13:07 | NUR ---
Spoke to Kiara from [employer]. Patient has no deductible and no out of pocket. He does have a $10 copay per delivery which they should be able to deliver twice for $20. Patient notified. Informed [facility] no PICC line yet.
[2019-08-30 16:00] VITALS: BP 104/76
--- NOTE | 2019-08-30 16:04 | NUR ---
Nutritional Support Services Note: Appetite is good for meals, he receives a regular diet as ordered. No other nutrition intervention needed at this time. Will follow if needed. Marika Orr Rdn Ld
[2019-08-30 20:00] VITALS: BP 84/51
[2019-08-31] VITALS: BP 94/62
--- NOTE | 2019-08-31 06:58 | NUR ---
Recommend follow up for wound care in outpatient setting patient refused at this time.
[2019-08-31 08:00] VITALS: BP 128/54
--- NOTE | 2019-08-31 09:00 | NUR ---
Pari Mutuel Clerk in to see patient. No new needs or request at this time. When medically stable he will be discharged to home with [facility] and [facility] for home IV infusions. Awaiting PICC line placement.
--- NOTE | 2019-08-31 11:11 | NUR ---
Left voicemail for Marlene Butt at [phone] regarding home IV antibiotic administration. Awaiting return call.
--- NOTE | 2019-08-31 11:38 | NUR ---
Spoke to Nancy in the lobby regarding home IV antibiotics and [facility]. She is agreeable for him to go home and she can learn how to administer the antibiotics. Explained OV will teach her how to administered and she verbalized an understanding.
--- NOTE | 2019-08-31 11:38 | NUR ---
PHYSICAL THERAPY Attempted to see pt for evaluation just had PICC line placed spoke with nsg awaiting results xray f/u to ensure proper placement will follow once cleared Latia Merrill PT
--- NOTE | 2019-08-31 11:41 | NUR ---
Faxed prescription Cefazolin 2 GM IV Q8H to [facility] along with PICC line information.
--- NOTE | 2019-08-31 11:44 | NUR ---
Faxed prescription Cefazolin 2 GM IV Q8H to [facility] along with PICC line information.
[2019-08-31 12:00] VITALS: BP 116/76
--- NOTE | 2019-08-31 12:15 | NUR ---
PHYSICAL THERAPY Zelda completed moderate level of complexity 46153 recomend SNF at discharge. Pt w overall weakness,deconditioned. Pt fell yesterday in room no injuries, but per pt "my legs just gave out". STS min x 1 amb 2 x 10 in room w FWW min x 1 and cues for use/safety w AD. Pt on RA sats pre 93% with amb down to 87-88% also c/o mild dizziness. Nurse Haney in room to assess 02 pt does recover quickly to 90-91% less than one minute. Discussed concerns with pt and girlfriend Vidal hubbard d/c as to go home today, also spoke with CM. Pt/girlfriend/CM to discuss rehab vs home w HH. If home would recomend fww and 24 hr assist/care for safety and HH, nsg to address 02. Latia Merrill PT
--- NOTE | 2019-08-31 13:47 | NUR ---
Set Up Machinist in to see patient. Discussed short term rehab and he refuses. He states he would rather go home with therapy at home. Marlene in agreement. Patient will need assessed for home O2 prior ot discharge.
--- NOTE | 2019-08-31 14:44 | NUR ---
Received call from Tala at [facility] regarding patient discharging today. Explained patient is not discharging today, possibly tomorrow.
--- NOTE | 2019-08-31 14:59 | NUR ---
Received call from Jenae at [facility] regarding patient discharging today. Explained patient is not discharging today, possibly tomorrow.
[2019-08-31 16:00] VITALS: BP 119/95
[2019-08-31 20:26] VITALS: BP 104/69
[2019-09-01] VITALS: BP 97/63
--- NOTE | 2019-09-01 03:21 | NUR ---
DR YANEZ NOTIFIED OF PT'S 15 BEAT RUN OF VTACH
[2019-09-01 03:40] VITALS: BP 110/83
--- NOTE | 2019-09-01 04:22 | NUR ---
DR NIELSON RETURNED CALL. NEW ORDERS REC'D FOR LABS IN THE AM.
--- NOTE | 2019-09-01 07:30 | NUR ---
PT RESTING IN BED. VOICES NO CONCERNS AT THIS TIME. RESPS EASY AND NON LABORED. NO S/S OF DISTRESS NOTED. WHITE BOARD UPDATED. VSS. CALL LIGHT WITHIN REACH
[2019-09-01 08:00] VITALS: BP 132/78
[2019-09-01 08:08] LABS: BUN 14 mg/dl (7-24); CREATININE 1.27 mg/dL (0.70-1.30)
--- NOTE | 2019-09-01 08:13 | NUR ---
PT CURRENTLY REFUSING TO TAKE LOSARTAN. MEDICATION PURPOSE WAS EXPLAINED TO PT AND RATIONALE FOR USE. STILL REFUSES TO TAKE. STATES HE WILL ASK DOCTOR ABOUT IT WHEN THEY ROUND TO SEE HIM.
[2019-09-01 08:52] LABS: BUN 15 mg/dl (7-24); CHLORIDE 110 mmol/L (98-107); CREATININE 1.27 mg/dL (0.70-1.30); SODIUM 142 mmol/L (136-145)
--- NOTE | 2019-09-01 10:58 | NUR ---
PATIENTS SIGNIFICANT OTHER IS IN THE ROOM AND IS REQUESTING THE BED ALARM BE TURNED OFF AT THIS TIME. EXPLAINED TO HER THE IMPORTANCE/RATIONALE FOR USE. STILL REFUSING. ASKED HER TO PLEASE LET STAFF KNOW WHEN SHE LEAVES SO IT CAN BE TURNED BACK ON. CALL LIGHT WITHIN REACH
--- NOTE | 2019-09-01 11:05 | NUR ---
PHYSICAL THERAPY Patient seen this am 1;1 for therapy visit and was resting supine in bed, his visiting, upon therapist arrival. Patient identified by name / and reports no new c/o's at this time. Patient transfers supine to sit EOB with CGA and was instructed on seated B LE therex, all plane, x 15 reps each to increased LE strength. Patient performed sit to stand transfer, CGA, then ambulated 30'x 2, use of wh walker, CGA, demonstrating very slow, cautious gait pattern. Patient needed v/c to increase stride and returned to supine in bed with mild fatigue. Patient remained in bed with call light, tray table, telephone and bed alarm for safety. Will continue per POC as tolerated, total treatment time 19 minutes. Zach Lyons, ENGINEER SERGEANT
[2019-09-01 11:06] LABS: ADENOVIRUS Negative (Negative); INFLUENZA A Negative (Negative); INFLUENZA B Negative (Negative); METAPNEUMOVIRUS Negative (Negative); PARAINFLUENZA 1 Negative (Negative); PARAINFLUENZA 2 Negative (Negative); PARAINFLUENZA 3 Negative (Negative); RHINOVIRUS Negative (Negative); RSV A Positive (Negative); RSV B Negative (Negative)
[2019-09-01 12:00] VITALS: BP 113/70
--- NOTE | 2019-09-01 13:05 | NUR ---
Notified by Dr. García patient wanted a SNF. Car Escort in to see patient. Girlfriend at bedside. Discussed short term SNF and he refuses. He states "He (Dr. García) wants me to go there but I do not." He remains agreeable to [facility] and girlfriend is agreeable to help administer the IV antibiotics. Plan is to discharge patient tomorrow per Dr. García. Notified Jose Francisco at [facility] and Jenae at [facility].
--- NOTE | 2019-09-01 14:41 | NUR ---
PHYSICAL THERAPY CO-SIGN I approve of the Physical Therapy notes written above. Latia Merrill PT
--- NOTE | 2019-09-01 15:51 | NUR ---
Dr. Diaz called and gave verbal order to [facility] for home IV antibiotic
[2019-09-01 16:00] VITALS: BP 125/86
--- NOTE | 2019-09-01 18:07 | NUR ---
DR YANEZ AND DR GOODMAN MADE AWARE OF 28 BEAT RUN OF VTACH. PER DR GOODMAN GIVE 25MG TOPROL PO NOW AND THEN START GIVING BID. ALSO STATED IT WAS OKAY FOR PATIENT TO HAVE ANOTHER DOSE AT 2200. THIS RUN OF VTACH HAPPENED AROUND 1400 AND THIS RN WAS JUST NOTIFIED. MOTION AND TIME STUDY TEACHER WAS CALLED REGARDING SITUATION AND THAT STEREOTYPER HELPER DID NOT NOTIFY ANYONE. PT CURRENTLY ASYMPTOMATIC. VSS. GIRL FRIEND AT BEDSIDE. CALL LIGHT WITHIN REACH
[2019-09-01 20:00] VITALS: BP 96/70
[2019-09-02] VITALS: BP 103/69
[2019-09-02 08:00] VITALS: BP 132/78
[2019-09-02] MEDS ORDERED: METOPROLOL SUCC25 M2 PO ×2 (08:33→08:39)
--- NOTE | 2019-09-02 09:17 | NUR ---
Discharge instructions reviewed with patient/family. Patient receptive and verbalizes understanding. Follow-up care arranged. Written instructions given to patient/family. HISSOM,SARAHI The Discharge Plan/Instructions have been completed.
--- NOTE | 2019-09-02 09:17 | NUR ---
PT DECLINED TO HAVE DISCHARGE PHOTOS TAKEN OF RIGHT ARM SKIN TEAR
== END 2019-09-02 09:17 | disposition home or self-care (01) | DRG 871 ==
LOC: ED 22:38 → EDHOLD 08-26 04:24 → 4E 08-26 04:24
PROVIDERS: Emergency Medicine Emergency Medical Services; Internal Medicine; Internal Medicine Cardiovascular Disease; Internal Medicine Critical Care Medicine; ADMIT Internal Medicine
DX: A41.1 Sepsis due to other specified staphylococcus (principal); J12.9 Viral pneumonia, unspecified; I50.23 Acute on chronic systolic (congestive) heart failure; J96.20 Acute and chronic respiratory failure, unspecified whether with hypoxia or hypercapnia; I47.2 Ventricular tachycardia; I42.0 Dilated cardiomyopathy; I25.10 Atherosclerotic heart disease of native coronary artery without angina pectoris; J43.2 Centrilobular emphysema; J20.8 Acute bronchitis due to other specified organisms; I11.0 Hypertensive heart disease with heart failure; I25.5 Ischemic cardiomyopathy; R62.7 Adult failure to thrive; Z95.1 Presence of aortocoronary bypass graft; Z68.24 Body mass index [BMI] 24.0-24.9, adult; Z88.1 Allergy status to other antibiotic agents; Z91.040 Latex allergy status; Z79.82 Long term (current) use of aspirin; Z79.899 Other long term (current) drug therapy; Z95.2 Presence of prosthetic heart valve; Z87.891 Personal history of nicotine dependence

== ENCOUNTER 2019-09-06 05:25 | Inpatient (IN) | payer OTHER ==
[~2019-09-06] VITALS: Ht 175.2 cm; Wt 72.3 kg
[2019-09-06] VITALS (14 sets, daily range): BP systolic 60–120; BP diastolic 00–81
[~2019-09-06 05:25] MED LIST changes: +CEFAZOLIN1 G1 IV; +METOPROLOL SUCC25 M2 PO
[2019-09-06 06:11] LABS: BASO # 0.1 10*3/uL (0.0-0.1); BASO % 0.5 % (0.0-1.0); EOS # 0.1 10*3/uL (0.0-0.4); EOS % 1.2 % (1.0-4.0); HEMATOCRIT 39.9 % (42.0-52.0); HEMOGLOBIN 12.7 g/dl (14.0-18.0); LYMPH % 19.1 % (27.0-41.0); MEAN CELL VOLUME 91.7 fl (80.0-94.0); MEAN CORPUSCULAR HGB 29.2 pg (27.0-31.0); MEAN CORPUSCULAR HGB CONC 31.8 g/dl (33.0-37.0); MEAN PLATELET VOLUME 9.5 fl (9.6-12.3); MONO # 0.9 10*3/uL (0.1-1.0); MONO % 9.2 % (3.0-9.0); NEUT # 7.1 10*3/uL (2.3-7.9); NEUT % 69.5 % (47.0-73.0); PLATELET COUNT AUTOMATED 416 10*3/uL (130-400); RED BLOOD COUNT 4.35 10*6/uL (4.50-5.90); RED CELL DISTRI WIDTH 15.8 % (0-14.5); WHITE BLOOD COUNT 10.2 10*3/uL (4.8-10.8)
[2019-09-06 06:21] LABS: ACT PARTIAL THROMBO TIME 28.5 SECONDS (20.0-32.1); INTERNATIONAL NORM RATIO 1.3 (2.0-3.5)
[2019-09-06 06:48] LABS: ALBUMIN 2.8 gm/dl (3.1-4.5); ALKALINE PHOSPHATASE 193 U/L (45-117); BUN 17 mg/dl (7-24); CHLORIDE 98 mmol/L (98-107); CREATININE 1.38 mg/dL (0.70-1.30); POTASSIUM 3.4 mmol/L (3.5-5.1); SGOT/AST 37 IU/L (3-35); SGPT/ALT 47 U/L (12-78); SODIUM 137 mmol/L (136-145); TOTAL PROTEIN 6.8 gm/dL (6.4-8.2)
[2019-09-06 06:49] LABS: TROPONIN I 0.039 ng/ml (<0.045)
--- NOTE | 2019-09-06 07:10 | NUR ---
REPORT TO TOMY GARDNER
--- NOTE | 2019-09-06 07:11 | NUR ---
REPORT FROM ESTER GARDNER AT THIS TIME. PATIENT IS SITTING IN BED CURRENTLY USING URINAL. APPEARS IN NO DISTRESS. WILL CONTINUE TO MONITOR. VITALS TO BE OBTAINED WHEN PATIENT HAS FINISHED.
--- NOTE | 2019-09-06 10:25 | NUR ---
CHECKED WITH PHARMACIST JEREMÍAS AND STATES OK TO GIVE THE ORDERED 60MG OF LASIX IV EVEN THOUGH THE OTHER 60MG OF LASIX WAS GIVEN AT 0649 THIS MORNING. ALSO CALLED DR LAUGHLIN AND STATED THAT PATIENTS BP WAS 105/75. ASKED IF OK TO STILL GIVE LOPRESSOR, LISINOPRIL, AND 60MG OF LASIX. SHE STATES TO HOLD THE LISINOPRIL AND LOPRESSOR AND TO ONLY GIVE THE 60MG OF LASIX IV AT THIS TIME.
--- NOTE | 2019-09-06 10:28 | NUR ---
PATIENT DENIES ANY WOUNDS AT THIS TIME. A&OX4.
--- NOTE | 2019-09-06 12:00 | NUR ---
UPON COMING BACK DOWN FROM FLOOR PATIENT BLOOD PRESSURE HAD DROPPED WHILE THIS NURSE WAS OFF THE FLOOR. PATIENT DIAPHORETIC. FELT PRESSURE IN HIS EPIGASTRIC REGION. CO SOB WELL. DR ROTHMAN WAS NOTIFIED.
--- NOTE | 2019-09-06 12:06 | NUR ---
PATIENT IS STARTING TO FEEL BETTER AT THIS TIME. BP IS NOW 100/73.
--- NOTE | 2019-09-06 12:14 | NUR ---
AZITHROMYCIN WAS ALSO STOPPED WHEN BP DROPPED AND PATIENT HAD OTHER S/S NOTED IN PREVIOUS NOTE.
--- NOTE | 2019-09-06 12:23 | NUR ---
NOTIFIED [facility] OF PATIENT COMING TO FLOOR. PATIENT TAKEN UP BY THIS NURSE AT THIS TIME.
--- NOTE | 2019-09-06 12:40 | NUR ---
A 64, admitted to ICCU, under the services of JHONNY Sequeira MD with a diagnosis of CHF. Chief complaint is INCREASED SOB. Patient arrived via stretcher from ER. Monitor applied. Initial assessment completed. Vital signs taken and recorded. JHONNY SEQUEIRA MD notified of admission to the unit. Orders received. See assessment for past medical history, medications and allergies. Patient and/or family oriented to unit. [facility] visitation policy reviewed. Clothing/patient valuable form completed. ROLON
--- NOTE | 2019-09-06 15:35 | NUR ---
DR MOJICA CALLED IN REGARDING PT. ORDERED FOR PT TO HAVE BRONCHOSCOPY IN AM. PT AND PT'S GIRLFRIEND NOTIFIED.
[2019-09-06 16:04] LABS: INTERNATIONAL NORM RATIO 1.4 (2.0-3.5)
--- NOTE | 2019-09-06 16:08 | NUR ---
ANESTHESIOLOGIST HERE TO SEE PT. INFORMED CONSENT FOR ANESTHESIA SIGNED BY PT.
--- NOTE | 2019-09-06 18:43 | NUR ---
PT RESTING. RESP EASY. VSS. NO COMPLAINTS VOICED AT THIS TIME. NO ACUTE DISTRESS NOTED.
--- NOTE | 2019-09-06 19:19 | NUR ---
Shift chart check completed.24 HR chart check completed.
--- NOTE | 2019-09-06 19:51 | NUR ---
DR LUU IN TO SEE PT FOR DR CASTRO.
--- NOTE | 2019-09-06 20:40 | NUR ---
ON ASSESSMENT PATIENT IS ALERT, ORIENTED, SOMEWHAT ANXIOUS. IV LASIX GIVEN PER DR LUU'S ORDER IN ADDITION TO AN ORAL DOSE OF TOPROL XL AFTER DR LUU GAVE BP PARAMETERS. RT PICC LINE INTACT WITH POSITIVE BLOOD RETURN. PT UNDERSTANDS HE'S NPO AFTER MIDNIGHT FOR BRONCHOSCOPY IN AM. BED IS IN LOW POSITION WITH WHEELS LOCKED.CALL LIGHT IN REACH. URINAL IN REACH. PT REQUESTED AND WAS PROVIDED WITH A FAN IN HIS ROOM. DOOR CLOSED AND LIGHTS OUT PER HIS REQUEST.
[2019-09-07] VITALS (10 sets, daily range): BP systolic 87–127; BP diastolic 50–99
--- NOTE | 2019-09-07 | NUR ---
PT AWAKE FOR VITAL SIGNS/ANTIBIOTIC. SAYS HE'S BEEN SLEEPING "PRETTY GOOD". VOIDS APPROXIMATELY 200ML EACH TIME. NO C/O PAIN. HR LESS THAN 100 SINCE EARLIER TOPROL. BP 97/64 AFTER THE TOPROL AND IV LASIX. ASSISTED TO POSITION OF COMFORT. NPO FOR BRONCHOSCOPY.
--- NOTE | 2019-09-07 04:22 | NUR ---
PT AWAKE TO VOID. VITAL SIGNS TAKEN AND RECORDED. STATES HE'S HAVING A "VERY RESTFUL NIGHT". EXPLAINED WILL NEED A HIBICLENS BATH PRIOR TO HIS PROCEDURE TODAY.
[2019-09-07 05:25] LABS: CREATININE 1.61 mg/dL (0.70-1.30); POTASSIUM 3.5 mmol/L (3.5-5.1)
[2019-09-07 06:14] LABS: BASO % 0.4 % (0.0-1.0); EOS # 0.1 10*3/uL (0.0-0.4); EOS % 1.4 % (1.0-4.0); HEMATOCRIT 38.4 % (42.0-52.0); HEMOGLOBIN 12.1 g/dl (14.0-18.0); LYMPH # 2.3 10*3/uL (1.3-4.4); LYMPH % 23.5 % (27.0-41.0); MEAN CORPUSCULAR HGB 29.3 pg (27.0-31.0); MEAN CORPUSCULAR HGB CONC 31.5 g/dl (33.0-37.0); MEAN PLATELET VOLUME 10.2 fl (9.6-12.3); MONO # 0.9 10*3/uL (0.1-1.0); MONO % 9.1 % (3.0-9.0); NEUT # 6.4 10*3/uL (2.3-7.9); NEUT % 65.2 % (47.0-73.0); PLATELET COUNT AUTOMATED 371 10*3/uL (130-400); RED BLOOD COUNT 4.13 10*6/uL (4.50-5.90); RED CELL DISTRI WIDTH 15.8 % (0-14.5); WHITE BLOOD COUNT 9.8 10*3/uL (4.8-10.8)
--- NOTE | 2019-09-07 08:27 | NUR ---
DR LAUGHLIN IN TO SEE PT.
--- NOTE | 2019-09-07 08:49 | NUR ---
PT TO SURGERY VIA BED.
--- NOTE | 2019-09-07 10:15 | NUR ---
PT RETURNED FROM SURGERY. VSS. PT DENIES COMPLAINTS AT THIS TIME. FULL LIQUID DIET ORDERED FOR PT.
--- NOTE | 2019-09-07 10:30 | NUR ---
Air Battle Manager in to talk to patient. Patient states lives at home with his girlfriend and family checking in on him. There are 0 steps in the home. Physician: Dr. Rhonda Graham [facility] Home health services: [facility] Patient's level of ADLs: INDEPENDENT Patient has working utilities: yes DME: nebulizer Follow-up physician's appointment after d/c: he prefers to make his own follow up appt after discharge Does patient want to access PORTAL?: no Discharge plan discussed with patient. He lives at home with his girlfriend and his family checking in on him. He is independent in his ADLs and ambulation. Discussed home health care services and he currently has [facility] and would like to continue those services upon discharge. Also has [facility] for home IV antibiotics. When medically stable he will be discharged to home. He states his family will provide transportation on discharge. TOYA FUENTES
--- NOTE | 2019-09-07 10:41 | NUR ---
DR CASTRO IN TO SEE PT.
--- NOTE | 2019-09-07 11:00 | NUR ---
PT NOTIFIED THAT DR CASTRO IS GOING TO SCHEDULE OUTPT STRESS TEST AT [facility] NEXT . AT 0700.
--- NOTE | 2019-09-07 13:10 | NUR ---
PT SLEEPING. EARLIER ZOFRAN EFFECTIVE.
--- NOTE | 2019-09-07 13:12 | NUR ---
MEDICATED PT PER PRN ORDER WITH IV ZOFRAN FOR C/O NAUSEA.
--- NOTE | 2019-09-07 17:06 | NUR ---
PT EATING DINNER. PT DENIES COMPLAINTS AT THIS TIME. PT'S GIRLFRIEND AT BEDSIDE.
--- NOTE | 2019-09-07 18:20 | NUR ---
PT RESTING. NO ACUTE DISTRESS NOTED.
--- NOTE | 2019-09-07 20:00 | NUR ---
PT RESTING IN BED AWAKE, A&O, PLEASANT AND COOPERATIVE. RESP NONLABORED. RIGHT PICC PATENT, DRESSING DRY AND INTACT. NO ACUTE DISTRESS NOTED. NO COMPLAINTS VOICED.
[2019-09-08] VITALS (8 sets, daily range): BP systolic 89–104; BP diastolic 60–68
--- NOTE | 2019-09-08 09:18 | NUR ---
PHYSICAL THERAPY Screen received pt is from home admitted with CHF,Pneumonia,Hypotension. Please consult PT if pt has a decline in functional status from baseline, thank you. Latia Merrill PT
[2019-09-08 16:08] LABS: ACID FAST SPEC PROCESSING Concentration (.)
--- NOTE | 2019-09-08 17:30 | NUR ---
TOOK OVER CARE OF PT AT THIS TIME. PT RESTING IN BED. AT BEDSIDE. ASSESSMENT COMPLETE. NO S/S OF DISTRESS NOTED. CALL LIGHT IN REACH.
--- NOTE | 2019-09-08 17:42 | NUR ---
PATIENT REPORT GIVEN TO TAMMY GARDNER. PATIENT MOVED OUT TO 410 VIA WHEELCHAIR.
--- NOTE | 2019-09-08 18:11 | NUR ---
DR LAUGHLIN NOTIFIED THAT HEAD TENNIS COACH TECH REPORTS THAT PT HAS 8 BEAT RUN OF V TACH. PT STABLE WITH NO COMPLAINTS OF CHEST PAIN OR SHORTNESS OF BREATH. BP WNL. HRR. WILL CONTINUE TO MONITOR. NO NEW ORDERS RECEIVED FROM DR LAUGHLIN AT THIS TIME.
[2019-09-09] VITALS (7 sets, daily range): BP systolic 86–110; BP diastolic 62–80
--- NOTE | 2019-09-09 02:36 | NUR ---
24 HR chart check completed.
[2019-09-09 06:29] LABS: BASO # 0.1 10*3/uL (0.0-0.1); BASO % 0.6 % (0.0-1.0); EOS # 0.2 10*3/uL (0.0-0.4); EOS % 2.8 % (1.0-4.0); HEMATOCRIT 36.9 % (42.0-52.0); HEMOGLOBIN 11.6 g/dl (14.0-18.0); LYMPH % 24.1 % (27.0-41.0); MEAN CELL VOLUME 93.4 fl (80.0-94.0); MEAN CORPUSCULAR HGB 29.4 pg (27.0-31.0); MEAN CORPUSCULAR HGB CONC 31.4 g/dl (33.0-37.0); MEAN PLATELET VOLUME 9.8 fl (9.6-12.3); MONO # 0.8 10*3/uL (0.1-1.0); MONO % 9.6 % (3.0-9.0); NEUT # 5.1 10*3/uL (2.3-7.9); NEUT % 62.5 % (47.0-73.0); PLATELET COUNT AUTOMATED 311 10*3/uL (130-400); RED BLOOD COUNT 3.95 10*6/uL (4.50-5.90); RED CELL DISTRI WIDTH 15.8 % (0-14.5); WHITE BLOOD COUNT 8.2 10*3/uL (4.8-10.8)
[2019-09-09 07:05] LABS: BUN 21 mg/dl (7-24); CHLORIDE 99 mmol/L (98-107); CREATININE 1.22 mg/dL (0.70-1.30); POTASSIUM 3.1 mmol/L (3.5-5.1); SODIUM 138 mmol/L (136-145)
--- NOTE | 2019-09-09 09:53 | NUR ---
SCHEDULED BP MEDS HELD AT THIS TIME DUE TO BP RUNNING LOW. BP 90/68. PT ASYMPTOMATIC. WILL CONTINUE TO MONITOR.
--- NOTE | 2019-09-09 11:03 | NUR ---
CALLED INTO PATIENT'S ROOM. PATIENT C/O MILD PANIC ATTACK AT THIS TIME. HX OF FREQUENT PANIC ATTACKS. SINUS TACHY PER CM. HR 115. BP 84/60. NOTIFIED AT THIS TIME.
--- NOTE | 2019-09-09 11:05 | NUR ---
PT MEDICATED WITH IV ZOFRAN PER PRN ORDER FOR C/O NAUSEA. WILL MONITOR EFFECTIVENESS.
--- NOTE | 2019-09-09 11:20 | NUR ---
IN TO SEE PATIENT. NOTIFIED REGARDING PANIC ATTACKS AFTER ADMINISTRATION OF IV ZITHROMAX. OKAY TO DISCONTINUE IV ZITHROMAX PER .
--- NOTE | 2019-09-09 11:20 | NUR ---
IN TO SEE PATIENT.
--- NOTE | 2019-09-09 11:40 | NUR ---
PATIENT STATES HE IS FEELING CALMER AT THIS TIME. ENCOURAGED TO TAKE SLOW DEEP BREATHS. PT VOICED UNDERSTANDING. HR 107. WILL CONTINUE TO MONITOR.
--- NOTE | 2019-09-09 16:21 | NUR ---
ATTEMPTED TO REACH REGARDING 15 BEAT RUN OF V-TACH. PRODUCTION EDITOR AND UNAVAILABLE AT THIS TIME. AWAITING RETURN PHONE CALL FROM . HERE AND NOTIFIED REGARDING 15 BEAT RUN. PT ASYMPTOMATIC. PT SITTING UP IN BED. NO VOICED COMPLAINS. BP 110/80. WILL CONTINUE TO MONITOR. CALL LIGHT WITHIN REACH.
--- NOTE | 2019-09-09 16:45 | NUR ---
IN TO SEE PATIENT.
--- NOTE | 2019-09-09 18:27 | NUR ---
NOTIFIED REGARDING LATEST EPISODE OF V-TACH. PT STILL REMAINS ASYMPTOMATIC. NEW ORDERS RECEIVED.
--- NOTE | 2019-09-09 20:55 | NUR ---
24 HR chart check completed.
--- NOTE | 2019-09-09 22:53 | NUR ---
HELD METOPROLOL BP 86/62. PT. DID NOT WANT THIS GIVEN
[2019-09-10] VITALS: BP 92/70
--- NOTE | 2019-09-10 00:40 | NUR ---
PATIENT HAD 6 BEAT RUN OF V-TACH AND RETURN BACK TO HIS NORMAL RHYTHM 'S ARE AWARE OF THIS.
[2019-09-10 06:28] LABS: ALBUMIN 2.8 gm/dl (3.1-4.5); ALKALINE PHOSPHATASE 199 U/L (45-117); BUN 22 mg/dl (7-24); CHLORIDE 100 mmol/L (98-107); CREATININE 1.34 mg/dL (0.70-1.30); POTASSIUM 3.6 mmol/L (3.5-5.1); SGOT/AST 42 IU/L (3-35); SGPT/ALT 36 U/L (12-78); SODIUM 140 mmol/L (136-145); TOTAL PROTEIN 6.5 gm/dL (6.4-8.2)
[2019-09-10 06:45] VITALS: BP 96/62
--- NOTE | 2019-09-10 06:45 | NUR ---
C/O SLIGHT NAUSEA ZOFRAN GIVEN PER ORDER. SEE MAR.
[2019-09-10 08:00] VITALS: BP 94/60
[2019-09-10 12:00] VITALS: BP 123/82
--- NOTE | 2019-09-10 13:09 | NUR ---
PATIENT SITTING UP IN BED. NO DISTRESS NOTED. VISITOR AT BEDSIDE. WILL CONTINUE TO MONITOR. VSS. NO VOICED COMPLAINTS. CALL LIGHT WITHIN REACH.
--- NOTE | 2019-09-10 13:15 | NUR ---
IN TO SEE PATIENT.
--- NOTE | 2019-09-10 13:20 | NUR ---
IN TO SEE PATIENT.
[2019-09-10 16:00] VITALS: BP 89/68
--- NOTE | 2019-09-10 18:49 | NUR ---
PT MEDICATED WITH PO TYLENOL PER PRN ORDER FOR C/O SHOULDER PAIN. RATES PAIN 12/26. WILL MONITOR EFFECTIVENESS.
--- NOTE | 2019-09-10 19:20 | NUR ---
PT RESTING IN BED. PT ANXIOUS AND SAID HE HAS HAD 3 PANIC ATTACKS SINCE BEING IN THE HOSPITAL. TALKED TO PT. REGARDING HIS CONCERNS. PT STATES HE IS FEELING A LITTLE NAUSEOUS AT THIS TIME, BUT DENIES ANY VOMITING. NO OTHER COMPLAINTS. ASSESSMENT COMPLETE. 2L O2 IN PLACE. CALL LIGHT WITHIN REACH. WILL CONTINUE TO MONITOR.
[2019-09-10 20:00] VITALS: BP 92/76
--- NOTE | 2019-09-10 20:06 | NUR ---
PRN BENEDRYL GIVEN FOR CO NAUSEA. WILL CHECK EFFECTIVENESS. CALL LIGHT WITHIN REACH.
--- NOTE | 2019-09-10 21:00 | NUR ---
PT STATES BENEDRYL WAS SOMEWHAT EFFECTIVE.
--- NOTE | 2019-09-10 22:11 | NUR ---
24 HR chart check completed.
[2019-09-11] VITALS: BP 97/65
[2019-09-11 05:46] VITALS: BP 102/75
[2019-09-11 08:00] VITALS: BP 100/62
--- NOTE | 2019-09-11 09:00 | NUR ---
Advance Seal Delivery System Maintainer in to see patient. No new needs or request at this time. Discussed home health care services and he remains agreeable to [facility]. He is hoping not to have IV antibiotics at home again as they made him very sick. When medically stable he will be discharged to home. He states he feels better and he feels like this is the first day he has been able to take in a deep breath.
[2019-09-11 12:00] VITALS: BP 94/64
--- NOTE | 2019-09-11 12:57 | NUR ---
CLONOPIN GIVEN FOR C/O "PANIC ATTACK" COMING ON. WILL MONITOR. INSTRUCTED HIM TO DEEP BREATHE. CALL LIGHT IN REACH.
--- NOTE | 2019-09-11 13:52 | NUR ---
CLONOPIN SEEMS EFFECTIVE. CALL LIGHT IN REACH. PT SLEEPING WITH EASY UNLABORED RESPIRATIONS. WILL CONTINUE TO MONITOR. NSR 80s PER CM WITH OCCASSIONAL PVC.
[2019-09-11 16:00] VITALS: BP 100/72
--- NOTE | 2019-09-11 19:20 | NUR ---
24 HR chart check completed.
[2019-09-11 20:00] VITALS: BP 94/65
[2019-09-12] VITALS: BP 98/71
--- NOTE | 2019-09-12 06:45 | NUR ---
INFORMED CONSENT OBTAINED FOR LEXISCAN NUCLEAR STRESS TEST WITH DR. CASTRO. RESTING EKG INCOMPLETE LBBB WITH A RESTING HR OF 90 WITH BP OF 90/62. HAS OCCASIONAL PVC'S. LUNGS DIMINISHED BS WITH SPO2 OF 99% WITH NASAL O2 AT 2L. PT DENIES ANY FEELING OF SHORT OF BREATH. NASAL O2 REMOVED AND WITH RECHECK SPO2 OF 95% ON ROOM AIR. PT COMPLETED A 1:00 LEXISCAN PROTOCOL RECEIVING LEXISCAN 0.4 MG IV OVER 10 SECONDS. ISOMETRIC HAND EXERCISES PERFORMED THROUGHOUT TESTING. HAD NO CHEST PAIN. EKG NONDIAGNOSTIC WITH INCOMPLETE LBBB PATTERN. HAD C/O "WEIRD FEELING" THAT SUBSIDED IN RECOVERY. HAD A PEAK HR OF 94 WITH BP OF 98/60. HAS OCCASIONAL PVC'S. LAST RECOVERY HR OF 91 WITH BP OF 94/60. AWAITING SCANNING IN STABLE CONDITION.
[2019-09-12] MEDS ORDERED: LOPRESSOR25 MG PO (08:28)
[2019-09-12] MEDS ORDERED: MIRTAZAPINE15 M2 PO (08:28)
[2019-09-12] MEDS ORDERED: CLONAZEPAM0.5 M2 PO (08:28)
[2019-09-12 09:41] VITALS: BP 98/58
--- NOTE | 2019-09-12 11:13 | NUR ---
[place]og Patching Machine Operator in to see patient. Discussed home health care services and he is agreeable to their resumption on discharge. Faxed resumption of [facility] health to [facility]. He is requesting a home O2 assessment. Discussed with Dr. Graham and new orders received. Nurse notified. Per nurse he is also awaiting his life vest.
--- NOTE | 2019-09-12 11:29 | NUR ---
SPOKE WITH DR CASTRO OFFICE RE; LIFE VEST. INFO TO BE FAXED AND REP TO BE NOTIFIED.
--- NOTE | 2019-09-12 11:35 | NUR ---
ORDERS RECIEVED FROM DR LAUGHLIN TO D/C PICC LINE AT DISCHARGE.
--- NOTE | 2019-09-12 11:41 | NUR ---
HOME O2 ASSESSMENT: PRE BP: 104/71, HR 94, RR 18, PULSE OX 96% ON ROOM AIR AT REST. AMBULATED PATIENT IN HALLWAY, PULSE OX 91%-95% ON ROOM AIR THROUGHOUT AMBULATION. PATIENT STATED THAT HE FELT WEAK. POST BP: 115/72, HR 104, RR 18, PULSE OX 95% ON ROOM AIR AT REST. RN NOTIFIED.
[2019-09-12 12:00] VITALS: BP 104/82
--- NOTE | 2019-09-12 13:33 | NUR ---
DR CASTRO'S OFFICE CONTATCTED RE: LIFE VEST FAX NOT YET RECEIVED. STAFF STATES THEY WILL FAX IT SOON, DR CASTRO JUST ARRIVED AT THE OFFICE.
--- NOTE | 2019-09-12 14:28 | NUR ---
NOTIFIED DR CASTRO OF 6 BEAT RUN OF [facility], PT ASYMPTOMATIC. LABS REVIEWED. STAT ORDERS FOR COMP RECEIVED.
[2019-09-12 15:18] LABS: ALBUMIN 2.9 gm/dl (3.1-4.5); CREATININE 1.46 mg/dL (0.70-1.30); POTASSIUM 3.6 mmol/L (3.5-5.1); TOTAL PROTEIN 6.7 gm/dL (6.4-8.2)
[2019-09-12 16:00] VITALS: BP 100/76
--- NOTE | 2019-09-12 16:04 | NUR ---
DR CASTRO CALLED UNIT, LABS REVIEWED. NEW ORDERS RECEIVED.
--- NOTE | 2019-09-12 17:54 | NUR ---
SPOKE WITH DR LAUGHLIN RE: PT WAITING FOR LIFE VEST AND LIFE VEST [employer] WAS WAITING FOR INSURANCE. DR LAUGHLIN STATES PT IS TO NOT BE DISCHARGED WITHOUT LIFE VEST. THIS NURSE STATES UNDERSTANDING. LABS ORDERED FOR THE MORNING. PT AND NURSING SUPERVISIOR AWARE.
[2019-09-12 20:00] VITALS: BP 101/76
[2019-09-13] VITALS: BP 99/67
--- NOTE | 2019-09-13 02:36 | NUR ---
24 HR chart check completed.
[2019-09-13 06:18] LABS: ALBUMIN 2.9 gm/dl (3.1-4.5); BUN 30 mg/dl (7-24); CHLORIDE 101 mmol/L (98-107); POTASSIUM 3.6 mmol/L (3.5-5.1); SGOT/AST 159 IU/L (3-35); SODIUM 139 mmol/L (136-145)
[2019-09-13 06:21] LABS: ALKALINE PHOSPHATASE 260 U/L (45-117); CREATININE 1.42 mg/dL (0.70-1.30); SGPT/ALT 66 U/L (12-78); TOTAL PROTEIN 6.5 gm/dL (6.4-8.2)
--- NOTE | 2019-09-13 06:53 | NUR ---
BP CHECKED 98/72 BEFORE GIVING METOPROLOL AND LASIX THIS AM.
--- NOTE | 2019-09-13 07:15 | NUR ---
ARRIVED ON SHIFT, INTRODUCED TO PATIENT, BED IN LOW POSITION, CALL LIGHT WITHIN REACH, NO NEEDS VOICED AT THIS TIME WHITE BOARD UPDATED.
[2019-09-13 08:00] VITALS: BP 100/66; BP 92/58
[2019-09-13] MEDS ORDERED: FUROSEMIDE40 MG PO (08:29)
[2019-09-13 12:00] VITALS: BP 99/56
--- NOTE | 2019-09-13 12:36 | NUR ---
RECEIVED CALL FROM MONITOR ROOM, PATIENT HAD 10 NEAT RUN OF [facility], PLACED CALL TO DR. LAUGHLIN, SHE VERSED SHE WAS AWARE AND I DID NOT NEED TO CALL DIDI, PATIENT IS AWAITING LIFE VEST.
[2019-09-13 13:27] VITALS: BP 84/60
[2019-09-13 16:00] VITALS: BP 95/58
--- NOTE | 2019-09-13 20:48 | NUR ---
SPOKE WITH AND INFORMED HER PT GOT HIS LIFE VEST AND IF IT IS OK THAT THE PT BE DISCHARGED NOW. SAID PT IS OK TO BE DISCHARGED.
--- NOTE | 2019-09-13 20:49 | NUR ---
Discharge instructions reviewed with patient/family. Patient receptive and verbalizes understanding. Follow-up care arranged. Written instructions given to patient/family. PICC LINE REMOVED AND MONITOR TAKEN OFF. PT LEFT BY WHEELCHAIR WITH HIS BELONGINGS AND IN CARE OF HIS GIRLFRIEND. MARCIAL JOHNSON
--- NOTE | 2019-09-14 13:44 | NUR ---
FABIOLA recieved phone call form [facility] stating that client since discharging has declined Home Health Services.
== END 2019-09-13 20:49 | disposition home or self-care (01) | DRG 291 ==
LOC: ED 05:25 → EDHOLD 06:47 → ICCU 06:47 → 4E 09-08 17:27
PROVIDERS: Emergency Medicine; Internal Medicine Cardiovascular Disease; Internal Medicine Critical Care Medicine; ADMIT Internal Medicine
PROC: 0BC48ZZ Extirpation of Matter from Right Upper Lobe Bronchus, Via Natural or Artificial Opening Endoscopic (ICD-10-PCS; principal; 2019-09-07)
PROC: 0BCB8ZZ Extirpation of Matter from Left Lower Lobe Bronchus, Via Natural or Artificial Opening Endoscopic (ICD-10-PCS; principal; 2019-09-07)
PROC: 0BC68ZZ Extirpation of Matter from Right Lower Lobe Bronchus, Via Natural or Artificial Opening Endoscopic (ICD-10-PCS; principal; 2019-09-07)
PROC: 0BC78ZZ Extirpation of Matter from Left Main Bronchus, Via Natural or Artificial Opening Endoscopic (ICD-10-PCS; principal; 2019-09-07)
PROC: 0BC98ZZ Extirpation of Matter from Lingula Bronchus, Via Natural or Artificial Opening Endoscopic (ICD-10-PCS; principal; 2019-09-07)
PROC: 0BC88ZZ Extirpation of Matter from Left Upper Lobe Bronchus, Via Natural or Artificial Opening Endoscopic (ICD-10-PCS; principal; 2019-09-07)
PROC: 0BC58ZZ Extirpation of Matter from Right Middle Lobe Bronchus, Via Natural or Artificial Opening Endoscopic (ICD-10-PCS; principal; 2019-09-07)
PROC: 0BC38ZZ Extirpation of Matter from Right Main Bronchus, Via Natural or Artificial Opening Endoscopic (ICD-10-PCS; principal; 2019-09-07)
PROC: 0BC18ZZ Extirpation of Matter from Trachea, Via Natural or Artificial Opening Endoscopic (ICD-10-PCS; principal; 2019-09-07)
PROC: 0BC28ZZ Extirpation of Matter from Carina, Via Natural or Artificial Opening Endoscopic (ICD-10-PCS; principal; 2019-09-07)
PROC: 3E073KZ Introduction of Other Diagnostic Substance into Coronary Artery, Percutaneous Approach (ICD-10-PCS; 2019-09-12)
PROC: 4A02XM4 Measurement of Cardiac Total Activity, External Approach (ICD-10-PCS; 2019-09-12)
DX: I50.23 Acute on chronic systolic (congestive) heart failure (principal); J18.9 Pneumonia, unspecified organism; J96.90 Respiratory failure, unspecified, unspecified whether with hypoxia or hypercapnia; F32.0 Major depressive disorder, single episode, mild; I47.2 Ventricular tachycardia; J44.0 Chronic obstructive pulmonary disease with (acute) lower respiratory infection; I42.0 Dilated cardiomyopathy; E44.0 Moderate protein-calorie malnutrition; N17.9 Acute kidney failure, unspecified; J40 Bronchitis, not specified as acute or chronic; J98.09 Other diseases of bronchus, not elsewhere classified; I25.10 Atherosclerotic heart disease of native coronary artery without angina pectoris; F41.0 Panic disorder [episodic paroxysmal anxiety]; K76.1 Chronic passive congestion of liver; N18.3 Chronic kidney disease, stage 3 (moderate); F41.1 Generalized anxiety disorder; E87.5 Hyperkalemia; I95.9 Hypotension, unspecified; K59.09 Other constipation; Z95.2 Presence of prosthetic heart valve; B95.7 Other staphylococcus as the cause of diseases classified elsewhere; Z95.1 Presence of aortocoronary bypass graft; Z68.24 Body mass index [BMI] 24.0-24.9, adult; Z87.891 Personal history of nicotine dependence; Z88.1 Allergy status to other antibiotic agents; Z79.01 Long term (current) use of anticoagulants; Z91.040 Latex allergy status; Z79.899 Other long term (current) drug therapy; Z79.82 Long term (current) use of aspirin

== ENCOUNTER 2019-11-21 21:15 | Inpatient (IN) | payer OTHER ==
[~2019-11-21] VITALS: Ht 175.2 cm; Wt 73.2 kg
[~2019-11-21 21:15] MED LIST changes: +CLONAZEPAM0.5 M2 PO; +LOPRESSOR25 MG PO; +MIRTAZAPINE15 M2 PO
[2019-11-21 21:24] VITALS: BP 101/73
[2019-11-21 21:45] LABS: BASO # 0.1 10*3/uL (0.0-0.1); BASO % 0.7 % (0.0-1.0); EOS # 0.3 10*3/uL (0.0-0.4); EOS % 3.6 % (1.0-4.0); HEMATOCRIT 44.5 % (42.0-52.0); LYMPH # 2.4 10*3/uL (1.3-4.4); LYMPH % 32.7 % (27.0-41.0); MEAN CELL VOLUME 90.6 fl (80.0-94.0); MEAN CORPUSCULAR HGB 28.9 pg (27.0-31.0); MEAN CORPUSCULAR HGB CONC 31.9 g/dl (33.0-37.0); MEAN PLATELET VOLUME 9.4 fl (9.6-12.3); MONO # 0.8 10*3/uL (0.1-1.0); MONO % 10.7 % (3.0-9.0); NEUT # 3.8 10*3/uL (2.3-7.9); PLATELET COUNT AUTOMATED 342 10*3/uL (130-400); RED BLOOD COUNT 4.91 10*6/uL (4.50-5.90); RED CELL DISTRI WIDTH 15.3 % (0-14.5); WHITE BLOOD COUNT 7.3 10*3/uL (4.8-10.8)
[2019-11-21 21:55] LABS: ACT PARTIAL THROMBO TIME 31.9 SECONDS (20.0-32.1); INTERNATIONAL NORM RATIO 1.4 (2.0-3.5)
[2019-11-21 22:03] LABS: ALBUMIN 3.4 gm/dl (3.1-4.5); ALKALINE PHOSPHATASE 182 U/L (45-117); BUN 16 mg/dl (7-24); CHLORIDE 96 mmol/L (98-107); CREATININE 1.06 mg/dL (0.70-1.30); POTASSIUM 3.6 mmol/L (3.5-5.1); SGOT/AST 23 IU/L (3-35); SGPT/ALT 21 U/L (12-78); SODIUM 134 mmol/L (136-145); TOTAL PROTEIN 7.4 gm/dL (6.4-8.2)
[2019-11-21 22:04] LABS: TROPONIN I < 0.015 ng/ml (<0.045)
[2019-11-21 22:21] VITALS: BP 94/67
[2019-11-21 22:45] VITALS: BP 97/61
[2019-11-21 23:15] VITALS: BP 102/66
[2019-11-21 23:44] VITALS: BP 96/70
[2019-11-22 00:06] VITALS: BP 96/73
[2019-11-22] MEDS ORDERED: PROAIR HFA8.5 GM INH (01:06)
[2019-11-22] MEDS ORDERED: COREG3.125 MG PO (01:08)
[2019-11-22] MEDS ORDERED: BUMETANIDE0.5 MG PO (01:09)
[2019-11-22 06:25] LABS: ALBUMIN 2.9 gm/dl (3.1-4.5); BUN 16 mg/dl (7-24); CHLORIDE 99 mmol/L (98-107); CREATININE 0.77 mg/dL (0.70-1.30); SGOT/AST 19 IU/L (3-35); SGPT/ALT 19 U/L (12-78); SODIUM 135 mmol/L (136-145)
[2019-11-22 06:27] LABS: ALKALINE PHOSPHATASE 142 U/L (45-117); TOTAL PROTEIN 6.1 gm/dL (6.4-8.2)
[2019-11-22 08:00] VITALS: BP 97/69
[2019-11-22 12:00] VITALS: BP 93/71
[2019-11-22 16:00] VITALS: BP 91/68
[2019-11-22 20:00] VITALS: BP 95/70
[2019-11-23] VITALS: BP 103/66
[2019-11-23 05:09] LABS: HEP B CORE AB, IGM Negative (Negative); HEPATITIS B SURFACE AG Negative (Negative); HEPATITIS C VIRUS ANTIBODY <0.1 s/co (0.0-0.9)
[2019-11-23 07:01] LABS: BASO % 0.5 % (0.0-1.0); EOS # 0.2 10*3/uL (0.0-0.4); EOS % 2.8 % (1.0-4.0); HEMATOCRIT 41.5 % (42.0-52.0); LYMPH # 1.6 10*3/uL (1.3-4.4); LYMPH % 25.7 % (27.0-41.0); MEAN CELL VOLUME 89.4 fl (80.0-94.0); MEAN CORPUSCULAR HGB 28.9 pg (27.0-31.0); MEAN CORPUSCULAR HGB CONC 32.3 g/dl (33.0-37.0); MEAN PLATELET VOLUME 9.5 fl (9.6-12.3); MONO # 0.9 10*3/uL (0.1-1.0); MONO % 14.2 % (3.0-9.0); NEUT # 3.5 10*3/uL (2.3-7.9); NEUT % 56.6 % (47.0-73.0); PLATELET COUNT AUTOMATED 308 10*3/uL (130-400); RED BLOOD COUNT 4.64 10*6/uL (4.50-5.90); RED CELL DISTRI WIDTH 15.3 % (0-14.5); WHITE BLOOD COUNT 6.2 10*3/uL (4.8-10.8)
[2019-11-23 07:31] LABS: ALBUMIN 3.3 gm/dl (3.1-4.5); ALKALINE PHOSPHATASE 154 U/L (45-117); BUN 16 mg/dl (7-24); CHLORIDE 97 mmol/L (98-107); CREATININE 0.86 mg/dL (0.70-1.30); POTASSIUM 3.4 mmol/L (3.5-5.1); SGOT/AST 17 IU/L (3-35); SGPT/ALT 19 U/L (12-78); SODIUM 137 mmol/L (136-145)
[2019-11-23 07:36] LABS: TOTAL PROTEIN 6.8 gm/dL (6.4-8.2)
[2019-11-23 08:00] VITALS: BP 102/74
[2019-11-23 12:00] VITALS: BP 96/71
[2019-11-23 16:00] VITALS: BP 96/75
[2019-11-23 16:36] VITALS: BP 92/56
[2019-11-23 20:00] VITALS: BP 100/72
[2019-11-24] VITALS: BP 98/70
[2019-11-24] MEDS ORDERED: ESCITALOPRAM OX10 MG PO (00:54)
[2019-11-24] MEDS ORDERED: MAGNESIUM OXID400 MG PO (00:54)
[2019-11-24] MEDS ORDERED: BUMETANIDE1 MG PO (00:54)
[2019-11-24 07:08] LABS: ALBUMIN 3.2 gm/dl (3.1-4.5); ALKALINE PHOSPHATASE 155 U/L (45-117); BUN 21 mg/dl (7-24); CHLORIDE 100 mmol/L (98-107); CREATININE 1.38 mg/dL (0.70-1.30); SGOT/AST 30 IU/L (3-35); SGPT/ALT 22 U/L (12-78); TOTAL PROTEIN 6.8 gm/dL (6.4-8.2)
[2019-11-24 07:35] LABS: SODIUM 133 mmol/L (136-145)
[2019-11-24 07:38] LABS: POTASSIUM 4.7 mmol/L (3.5-5.1)
[2019-11-24 08:00] VITALS: BP 95/66
== END 2019-11-24 12:43 | disposition home or self-care (01) | DRG 292 ==
LOC: ED 21:15 → EDHOLD 23:24 → 4E 23:24
PROVIDERS: Emergency Medicine; Internal Medicine; ADMIT Internal Medicine
DX: I50.23 Acute on chronic systolic (congestive) heart failure (principal); I47.2 Ventricular tachycardia; K21.0 Gastro-esophageal reflux disease with esophagitis; I25.5 Ischemic cardiomyopathy; F41.1 Generalized anxiety disorder; R62.7 Adult failure to thrive; E87.6 Hypokalemia; J84.10 Pulmonary fibrosis, unspecified; F32.9 Major depressive disorder, single episode, unspecified; J44.9 Chronic obstructive pulmonary disease, unspecified; I25.10 Atherosclerotic heart disease of native coronary artery without angina pectoris; Z95.0 Presence of cardiac pacemaker; Z68.24 Body mass index [BMI] 24.0-24.9, adult; Z95.2 Presence of prosthetic heart valve; Z88.1 Allergy status to other antibiotic agents; Z91.040 Latex allergy status; Z79.82 Long term (current) use of aspirin; Z79.899 Other long term (current) drug therapy; Z95.1 Presence of aortocoronary bypass graft

== ENCOUNTER → 2019-12-01 | Day surgery (SDC) | payer OTHER ==
[~2019-12-01] MED LIST changes: +BUMETANIDE0.5 MG PO; +BUMETANIDE1 MG PO; +ESCITALOPRAM OX10 MG PO; +MAGNESIUM OXID400 MG PO; +PROAIR HFA8.5 GM INH
[2019-12-01 08:32] VITALS: BP 98/46
[2019-12-01 11:07] LABS: BODY FLUID WBC 286 /uL
[2019-12-01 11:15] LABS: BODY FLUID WBC 295 /uL
[2019-12-01 12:55] LABS: BF LYMPHOCYTES 52 %; BF MACROPHAGES 25 %; BF MESOTHELIALS 7 %; BF MONOCYTES 1 %; BF NEUTROPHILS 14 %
[2019-12-01 13:06] LABS: BF LYMPHOCYTES 31 %; BF MACROPHAGES 45 %; BF MESOTHELIALS 12 %; BF NEUTROPHILS 11 %
== END | disposition home or self-care (01) ==
PROVIDERS: Internal Medicine Critical Care Medicine
DX: R91.8 Other nonspecific abnormal finding of lung field (principal); J98.11 Atelectasis; J44.9 Chronic obstructive pulmonary disease, unspecified

== ENCOUNTER 2019-12-22 16:32 | Inpatient (IN) | payer OTHER ==
[~2019-12-22] VITALS: Ht 175.3 cm; Wt 67.1 kg
[2019-12-22 16:41] VITALS: BP 97/73
[2019-12-22 17:16] LABS: BASO # 0.1 10*3/uL (0.0-0.1); BASO % 0.9 % (0.0-1.0); EOS # 0.9 10*3/uL (0.0-0.4); EOS % 13.2 % (1.0-4.0); HEMATOCRIT 43.7 % (42.0-52.0); LYMPH # 1.8 10*3/uL (1.3-4.4); LYMPH % 27.2 % (27.0-41.0); MEAN CELL VOLUME 82.3 fl (80.0-94.0); MEAN CORPUSCULAR HGB 27.1 pg (27.0-31.0); MEAN PLATELET VOLUME 10.5 fl (9.6-12.3); MONO # 0.6 10*3/uL (0.1-1.0); MONO % 9.4 % (3.0-9.0); NEUT # 3.3 10*3/uL (2.3-7.9); PLATELET COUNT AUTOMATED 269 10*3/uL (130-400); RED BLOOD COUNT 5.31 10*6/uL (4.50-5.90); RED CELL DISTRI WIDTH 16.3 % (0-14.5); WHITE BLOOD COUNT 6.7 10*3/uL (4.8-10.8)
[2019-12-22 17:26] LABS: ACT PARTIAL THROMBO TIME 34.5 SECONDS (20.0-32.1); INTERNATIONAL NORM RATIO 1.7 (2.0-3.5)
[2019-12-22 17:29] LABS: ALBUMIN 3.3 gm/dl (3.1-4.5); CREATININE 1.55 mg/dL (0.70-1.30); POTASSIUM 3.9 mmol/L (3.5-5.1); TOTAL PROTEIN 7.4 gm/dL (6.4-8.2); TROPONIN I 0.018 ng/ml (<0.045)
--- NOTE | 2019-12-22 19:26 | NUR ---
PT STANDS AT BEDSIDE, STEADY GAIT, PROVIDED URINE SAMPLE. PT REQUEST THIS RN TO EXAM "WOUNDS ON BUTT". ON EXAM THIS RN NOTES REDNESS TO BILATERAL BUTTOCKS BUT THERE IS NO VISIBLE OPEN WOUNDS TO AREA. PT MADE AWARE.
--- NOTE | 2019-12-22 19:26 | NUR ---
PT TO CT VIA WHEELCHAIR
[2019-12-22 19:38] LABS: BACTERIA 1+; BILIRUBIN 1+ (NEGATIVE); BLOOD NEGATIVE (NEGATIVE); CLARITY SL CLOUDY (CLEAR); COLOR YELLOW (YELLOW); GLUCOSE NEGATIVE (NEGATIVE); HYALINE CAST 41-50; KETONE NEGATIVE (NEGATIVE); LEUKO ESTERASE NEGATIVE (NEGATIVE); NITRITE NEGATIVE (NEGATIVE); SPECIFIC GRAVITY 1.025 (1.005-1.030); UROBILINOGEN 0.2 E.U./dl (0.2-1.0)
--- NOTE | 2019-12-22 19:41 | NUR ---
PT RETUNED FROM CT, IN BED ON CELL PHONE. DENIES NEEDS. WILL CONTINUE TO MONITOR.
[2019-12-22 21:26] VITALS: BP 99/66
--- NOTE | 2019-12-22 21:27 | NUR ---
DR STEPHENS SPEAKING WITH DR LAUGHLIN REGARDING PT ADMISSION AT THIS TIME
--- NOTE | 2019-12-22 21:32 | NUR ---
IV FLUID D/C'D PER DR STEPHENS. PT RECEIVED APPROX 800 ML.
--- NOTE | 2019-12-22 21:55 | NUR ---
PT ASSIGNED ROOM 507, WILL HOLD PT IN ED UNTIL 2300 PER NURSING IT RISK ADVISOR
--- NOTE | 2019-12-22 22:00 | NUR ---
PT REQUSTING TO SEE DR KAT OLIVIER AWARE.
--- NOTE | 2019-12-22 22:35 | NUR ---
PT AND SPOUSE GIVE "SNUFFY" PT PASSWORD
--- NOTE | 2019-12-22 23:35 | NUR ---
ATTEMPT TO TAKE PT TO 5TH FLOOR, RN REQEUST ADDITIONAL 10 MINUTES UNTIL BRINGING PATIENT TO FLOOR
[2019-12-22 23:55] VITALS: BP 103/71
--- NOTE | 2019-12-22 23:55 | NUR ---
A 64, admitted to 5E, under the services of JHONNY Sequeira MD with a diagnosis of VALERIE. DEHYDRATION. LACTIC ACIDOSIS. Chief complaint is VOMITING. Patient arrived via bed from ER. Monitor applied. Initial assessment completed. Vital signs taken and recorded. JHONNY SEQUEIRA MD notified of admission to the unit. Orders received. See assessment for past medical history, medications and allergies. Patient and/or family oriented to unit. [facility] 5E visitation policy reviewed. Clothing/patient valuable form completed. Skin WDI, blanchable redness to buttocks. Patient encouraged to shift weight q2h to prevent breakdown. ALEA OMER
[2019-12-23] VITALS: BP 103/71
--- NOTE | 2019-12-23 00:49 | NUR ---
Spoke with Dr. Graham, recieved admission orders. States she does not want called with lactic acid results.
--- NOTE | 2019-12-23 02:01 | NUR ---
Spoke with nursing prepress supervisor Shahida about order for bumex drip from Dr. Graham. Unsure if that is something she can get for me tonight, states she will get back to me.
--- NOTE | 2019-12-23 02:04 | NUR ---
Lactic acid critical at 5.3. Dr. Graham not notified, as requested by her earlier this evening.
--- NOTE | 2019-12-23 02:20 | NUR ---
Spoke with [facility] regarding ordering bumex drip. States that it is an order set. I was unable to get the order set up, and the pharmacist stated that "It will need to be put in by a physician, as quite a few drips have to be". Nursing steel post installer supervisor Shahida notified. Dr. Graham states earlier this evening that she would put the order in herself in the AM if I was unable.
--- NOTE | 2019-12-23 02:52 | NUR ---
Dr. Graham aware of inability to order bumex drip. States to give 2mg IV bumex now as a one time dose.
--- NOTE | 2019-12-23 06:41 | NUR ---
New patient consult attempted to call into Dr Paniagua who is synchronizer for Dr Martinez. No voicemail is set up and unable to leave a voicemail at this time. Will await call back.
--- NOTE | 2019-12-23 07:23 | NUR ---
New patient consult called into Dr Paniagua, states he will see the patient this afternoon.
[2019-12-23 08:00] VITALS: BP 99/50
--- NOTE | 2019-12-23 08:58 | NUR ---
PT REQUESTED AND WAS MEDICATED WITH ZOFRAN IV FOR C/O NAUSEA. WILL MONITOR
--- NOTE | 2019-12-23 09:55 | NUR ---
PT STATES MEDICATION "LITTLE BIT" EFFECTIVE.
--- NOTE | 2019-12-23 10:03 | NUR ---
Delivery Consultant in to talk to patient. Patient states lives at HOME with SIGNIFICANT OTHER. There are FEW steps in the home. Physician: DR. JHONNY LAUGHLIN Pharmacy: [facility] [place] Home health services: NONE Patient's level of ADLs: INDEPENDENT Patient has working utilities: YES DME: OXGYEN, NEBULIZER, WALKER, CANE Follow-up physician's appointment after d/c: WILL BE MADE BY HOSPITALIST RN DIRECTOR UPON DISCHARGE Does patient want to access PORTAL?: NO Discharge plan SOFTWARE RECRUITER SPOKE WITH THE PATIENT ABOUT DISCHARGE. PATIENT STATED THAT HE LIVES AT HOME WITH HIS SIGNIFICANT OTHER. PATIENT STATED THAT HE DOES HAVE STEPS INTO HIS BASEMENT BUT DOES NOT GO DOWN THERE. PATIENT STATED THAT HE USES [facility] IN [place]. PATIENT USES OXYGEN AND NEBULIZER FROM [facility]. HE DOES USE A WALKER OR CANE TO AMBULATE. PATIENT IS INDEPENDENT IN ADLS/IADLS. PATIENT STATED UPON DISCHARGE HE WILL RETURN HOME. PATIENT DENIES ANY NEEDS AT THIS TIME. GUI BONILLA
[2019-12-23 12:00] VITALS: BP 99/71
--- NOTE | 2019-12-23 12:28 | NUR ---
DR LUU CALLED RE: PT HAD RUNS OF VTACH. PT ASYMPTOMATIC. LAB ORDERED PER DR LUU. HE STATES HE WILL BE HERE AROUND 3
[2019-12-23 12:58] LABS: CREATININE 1.6 mg/dL (0.70-1.30); POTASSIUM 3.9 mmol/L (3.5-5.1); TOTAL PROTEIN 6.6 gm/dL (6.4-8.2)
--- NOTE | 2019-12-23 13:02 | NUR ---
DR LAUGHLIN CALLS UNIT RE: PT STATUS. ORDERS RECIEVED. UPDATED ON RUNS OF VTA AND THAT DR LUU WAS NOTIFIED.
[2019-12-23 16:00] VITALS: BP 112/57
--- NOTE | 2019-12-23 17:48 | NUR ---
DR LUU IN TO SEE PT. MONITOR STRIPS, EKG'S AND LABS REVIEWED
--- NOTE | 2019-12-23 19:29 | NUR ---
24 HR CHART CHECK COMPLETE.
[2019-12-23 20:00] VITALS: BP 99/66
[2019-12-24] VITALS: BP 96/69
[2019-12-24 06:06] LABS: BASO % 0.4 % (0.0-1.0); EOS # 0.1 10*3/uL (0.0-0.4); EOS % 1.4 % (1.0-4.0); HEMATOCRIT 39.9 % (42.0-52.0); LYMPH # 1.7 10*3/uL (1.3-4.4); LYMPH % 24.8 % (27.0-41.0); MEAN CELL VOLUME 81.8 fl (80.0-94.0); MEAN CORPUSCULAR HGB 26.8 pg (27.0-31.0); MEAN CORPUSCULAR HGB CONC 32.8 g/dl (33.0-37.0); MEAN PLATELET VOLUME 10.7 fl (9.6-12.3); MONO # 0.7 10*3/uL (0.1-1.0); MONO % 9.9 % (3.0-9.0); NEUT # 4.4 10*3/uL (2.3-7.9); NEUT % 63.2 % (47.0-73.0); PLATELET COUNT AUTOMATED 229 10*3/uL (130-400); RED BLOOD COUNT 4.88 10*6/uL (4.50-5.90); RED CELL DISTRI WIDTH 16.3 % (0-14.5); WHITE BLOOD COUNT 6.9 10*3/uL (4.8-10.8)
[2019-12-24 06:20] LABS: BUN 33 mg/dl (7-24); CHLORIDE 100 mmol/L (98-107); CREATININE 1.39 mg/dL (0.70-1.30); POTASSIUM 3.2 mmol/L (3.5-5.1); SODIUM 136 mmol/L (136-145)
--- NOTE | 2019-12-24 07:43 | NUR ---
DR SUTTON'S ANSWERING SERVIVE NOTIFIED OF CONSULT. SERVICE STATES OCTOBER LELO GOODMAN IS COVERING.
[2019-12-24 08:00] VITALS: BP 102/68
--- NOTE | 2019-12-24 09:16 | NUR ---
Taiwo GOODMAN NP CALLED BACK FOR ID, NEW ORDERS RECEIVED.
[2019-12-24 12:00] VITALS: BP 100/64
--- NOTE | 2019-12-24 15:28 | NUR ---
Patient resting quietly with no c/o discomfort. Respirations easy and regular. Vital signs stable. No overt distress. ABDIRASHID GROVES R
[2019-12-24 16:00] VITALS: BP 111/76
--- NOTE | 2019-12-24 16:35 | NUR ---
DR AMAYA NOTIFIED OF CONSULT.
--- NOTE | 2019-12-24 19:26 | NUR ---
24 hour chart check complete.
[2019-12-24 20:00] VITALS: BP 99/71
--- NOTE | 2019-12-24 20:00 | NUR ---
IN TO ASSESS PATIENT AT THIS TIME. SLEEPING ON ARRIVAL INTO ROOM. ONCE AWAKE, PATIENT APPEARS VERY FATIGUED. STATES THAT HE DIDN'T EAT WELL TODAY BUT FEELS OKAY OF NOW IN REGARDS TO NAUSEA. BED LOCKED AND IN THE LOWEST POSITION. WILL CONTINUE TO MONITOR.
--- NOTE | 2019-12-24 23:19 | NUR ---
SPOKE WITH RESPIRATORY, MA REQUESTING BREATHING TREATMENT. THEY ARE ON THEIR WAY UP.
[2019-12-25] VITALS: BP 94/69
[2019-12-25 05:59] LABS: BASO % 0.4 % (0.0-1.0); EOS # 0.1 10*3/uL (0.0-0.4); EOS % 1.4 % (1.0-4.0); HEMATOCRIT 43.9 % (42.0-52.0); LYMPH # 1.7 10*3/uL (1.3-4.4); LYMPH % 23.4 % (27.0-41.0); MEAN CELL VOLUME 83.3 fl (80.0-94.0); MEAN CORPUSCULAR HGB 27.1 pg (27.0-31.0); MEAN CORPUSCULAR HGB CONC 32.6 g/dl (33.0-37.0); MEAN PLATELET VOLUME 10.8 fl (9.6-12.3); MONO # 0.7 10*3/uL (0.1-1.0); MONO % 10.1 % (3.0-9.0); NEUT # 4.6 10*3/uL (2.3-7.9); NEUT % 64.1 % (47.0-73.0); PLATELET COUNT AUTOMATED 226 10*3/uL (130-400); RED BLOOD COUNT 5.27 10*6/uL (4.50-5.90); RED CELL DISTRI WIDTH 16.9 % (0-14.5); WHITE BLOOD COUNT 7.2 10*3/uL (4.8-10.8)
[2019-12-25 06:23] LABS: BUN 27 mg/dl (7-24); CHLORIDE 101 mmol/L (98-107); CREATININE 1.28 mg/dL (0.70-1.30); POTASSIUM 3.5 mmol/L (3.5-5.1); SODIUM 135 mmol/L (136-145)
--- NOTE | 2019-12-25 08:02 | NUR ---
Nursing screen received and chart reviewed. Patient admitted for nausea and vomitting. If patient has a decline in ADLs, transfers, or functional mobility, please send OT orders. Thank you. Lelo Arredondo, OTR/L
--- NOTE | 2019-12-25 08:09 | NUR ---
DR. AMAYA IN TO SEE PT AND DISCUSS PLAN OF CARE. PLANS TO DO AN EGD TOMORROW.
--- NOTE | 2019-12-25 08:24 | NUR ---
PHYSICAL THERAPY Nursing screen received and chart reviewed. Patient admitted for nausea and vomitting. Recommend skilled PT services if decline in functional mobility presents. Thank you. Laurie Medeiros,PT,DPT
--- NOTE | 2019-12-25 09:00 | NUR ---
Elementary School Music Teacher in to see patient. He states he lives sometimes alone, sometimes with his significant other. His PCP is Dr. Rhonda Graham and he uses [facility]. He has had [facility] in the past. He has a nebulizer at home. Discussed short term rehab and he is agreeable. When provided with a list of facilities he chose [facility]. construction ironworker helper notified.
--- NOTE | 2019-12-25 10:40 | NUR ---
XANAX GIVEN PER REQUEST. PT FEELING ANXIOUS AT THIS TIME. HR 130'S PER CM. WILL CONTINUE TO MONITOR AND REASSESS.
--- NOTE | 2019-12-25 10:45 | NUR ---
MID TEACHER FAXED NEW REFERRAL TO [facility]. WILL NEED RAPID COVID TEST AND PT/OT EVALS TO COMPLETE REFERAL. PRECERT WILL BE REQUIRED.
[2019-12-25 12:00] VITALS: BP 103/74
--- NOTE | 2019-12-25 12:06 | NUR ---
DR. LAUGHLIN AWARE OF CRITICAL LACTIC ACID RESULT. NO NEW ORDERS AT THIS TIME.
--- NOTE | 2019-12-25 15:20 | NUR ---
SPOKE WITH DR. LAUGHLIN. PATIENT ACCEPTED TO [facility] FOR CONTINUED CARE AND POSSIBLE PACER/DEFIB REMOVAL. AWAITING BED PLACEMENT.
[2019-12-25 16:00] VITALS: BP 106/77
--- NOTE | 2019-12-25 19:30 | NUR ---
IN TO ASSESS PATIENT. APPEARS TO BE VERY FATIGUED. STATES HE STILL HAS VERY LITTLE APPETITE. HR IN THE 120'S PER CM. NO SOB NOTED. 3LNC. PATIENT AWARE OF TRANSFER TO [facility] SOON BED BECOMES AVAILABLE. WILL CONTINUE TO MONITOR. BED LOCKED IN THE LOWEST POSITION. CALL LIGHT IN REACH.
--- NOTE | 2019-12-25 19:45 | NUR ---
DR LUU NOTIFIED OF PT HR 120-125, AND A 5 BEAT RUN OF VTACH. PATIENTS BLOOD PRESSURE 94/68 MANUALLY AT THIS TIME. STATES TO GIVE AMIODARONE AND BETA ELIZA ORDERED AT THIS TIME. NO NEW ORDERS FROM DR LUU, STATES NOTHING CAN BE DONE AT THIS TIME, DR CASTRO WILL SEE THE PATIENT IN THE MORNING.
[2019-12-25 20:00] VITALS: BP 94/68
[2019-12-26] VITALS: BP 92/65
--- NOTE | 2019-12-26 00:49 | NUR ---
24 HOUR CHART CHECK COMPLETE.
--- NOTE | 2019-12-26 07:10 | NUR ---
PT. UNAVAILABLE CURRENTLY HAVING BEDSIDE ECHO DONE.
--- NOTE | 2019-12-26 07:50 | NUR ---
24HR CHART CHECK COMPLETE.
[2019-12-26 08:00] VITALS: BP 98/64
--- NOTE | 2019-12-26 08:53 | NUR ---
OFFLINE CUTTER INFORMED [facility] OF PATIENT BEING TRANSFERRED TO [facility].
--- NOTE | 2019-12-26 09:00 | NUR ---
Watch Manufacturing Supervisor in to see patient. Discussed transfer to another facility and he is aware. He states they tried to get him to [place] but he wasn't sure why he couldn't go and that the doctors wanted to take his defibrillator out. He states now they are trying [place]. He said they were supposed to do an upper scope and then maybe a later bottom scope. He feels as though the doctors don't know what is wrong with him and they are doing all of these test to try and figure it out. Explained that he has an infection in his blood and the doctors believe he needs a higher level of care which would be in [place]. He verbalized an understanding. Asked if there was anyone he wanted CM to call to discuss with them about his transfer to [place]. He stated he called his significant other, Vidal, and let her know already. Spoke to steward/stewardess chief cargo vessel who states patient is going to be transferred to [facility].
--- NOTE | 2019-12-26 09:13 | NUR ---
Occupational Therapy evaluation completed on 5E with full evaluation to follow. Recommend occupational therapy per plan of care and SNF upon discharge. Thank you for this referral. Marj Cano OTR/L
--- NOTE | 2019-12-26 10:29 | NUR ---
PHYSICAL THERAPY PT orders received, however per Nsg and medical meeting this AM pt is to be tranfered to [facility], will defer therapy at this time. Latia Merrill PT
[2019-12-26 12:00] VITALS: BP 106/68
--- NOTE | 2019-12-26 13:00 | NUR ---
REPORT: NURSE TO NURSE GIVEN TO JJ HATFIELD AT [facility], [place]. ALL QUESTIONS ANSWERED. INFORMED RN OF DIFFICULTY SWALLOWING FOR PT. CALL BACK NUMBER PROVIDED. INFORMED OF 1330 [address]ER TIME. CONTINUE TO MONITOR THE PT.
--- NOTE | 2019-12-26 13:31 | NUR ---
TRANSFER: EMS HERE TO TAKE PT TO [facility]. MONITOR REMOVED. ALL BELONGINGS GATHERED AND SENT WITH THE PT. PT TRANSFERRED AT THIS TIME.
== END 2019-12-26 13:31 | disposition short-term general hospital (02) | DRG 872 ==
LOC: ED 16:32 → EDHOLD 21:37 → 5E 21:37
PROVIDERS: Emergency Medicine; Internal Medicine Cardiovascular Disease; ADMIT Internal Medicine
DX: A41.1 Sepsis due to other specified staphylococcus (principal); I47.2 Ventricular tachycardia; R18.8 Other ascites; E87.2 Acidosis; F32.0 Major depressive disorder, single episode, mild; I50.22 Chronic systolic (congestive) heart failure; E46 Unspecified protein-calorie malnutrition; N17.9 Acute kidney failure, unspecified; I25.5 Ischemic cardiomyopathy; E80.6 Other disorders of bilirubin metabolism; J44.9 Chronic obstructive pulmonary disease, unspecified; I25.10 Atherosclerotic heart disease of native coronary artery without angina pectoris; F41.1 Generalized anxiety disorder; K21.9 Gastro-esophageal reflux disease without esophagitis; I95.89 Other hypotension; R62.7 Adult failure to thrive; E86.0 Dehydration; J84.10 Pulmonary fibrosis, unspecified; R13.10 Dysphagia, unspecified; R63.4 Abnormal weight loss; Z68.21 Body mass index [BMI] 21.0-21.9, adult; Z95.2 Presence of prosthetic heart valve; Z95.810 Presence of automatic (implantable) cardiac defibrillator; Z88.1 Allergy status to other antibiotic agents; Z91.040 Latex allergy status; Z95.1 Presence of aortocoronary bypass graft